=== PATIENT | female | born 1940 | race Caucasian/White ===

== ENCOUNTER 2017-02-18 11:00 | Inpatient (IN) | payer MEDICARE, BC ==
[2017-02-18] MEDS ORDERED: Orphenadrine Citrate IV* 30 MG/ML 2 ML VIAL IV ONE (11:12)
[2017-02-18] MEDS ORDERED: Morphine INJ* 2 MG/ML 1 ML CARPUJECT IV ONE (11:12)
[2017-02-18] MEDS ORDERED: Dexamethasone IV* 4 MG/ML 5 ML VIAL (20 MG) IVPB ONE (11:12)
[2017-02-18] MEDS ORDERED: Morphine INJ* 4 MG/ML 1 ML CARPUJECT ONE (11:30)
--- NOTE | 2017-02-18 12:22 | RAD ---
INDICATION: Low back pain. COMPARISON: Comparison is made with a prior x-ray study of the lumbar spine from October 29, 2003. TECHNIQUE: 3 views of the lumbar spine were obtained including lateral, AP and a coned-down lateral view of the lumbar sacral junction. FINDINGS: There is a mild lumbar scoliosis convex toward the right side. There is grade 2 anterior spondylolisthesis at the L4-L5 level of approximately 1 cm. There is a mild compression fracture of the inferior endplate of the L2 vertebral body which is likely chronic. There is moderate to severe degenerative disc disease at the L1-L2 and L4-L5 levels. IMPRESSION: 1. 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 2. MILD COMPRESSION FRACTURE OF THE INFERIOR ENDPLATE OF THE L2 VERTEBRAL BODY LIKELY CHRONIC. 3. MODERATE TO SEVERE DEGENERATIVE DISC DISEASE.
[2017-02-18 12:52] LABS: Hematocrit 34 % (35-47); Hemoglobin 11.1 g/dl (12.0-16.0); Mean Corpuscular HGB Conc 33 g/dl (31-36); Mean Corpuscular Hemoglobin 29 pg (27-31); Mean Corpuscular Volume 87 fL (80-97); Mean Platelet Volume 9 um3 (7.4-10.4); Red Cell Distribution Width 15 % (10.5-15); White Blood Count 11.2 10^3/ul (3.5-10.8)
[2017-02-18] MEDS ORDERED: Morphine INJ* 4 MG/ML 1 ML CARPUJECT IV ONE (12:59)
[2017-02-18 13:06] LABS: Albumin 3.6 g/dL (3.2-5.2); BUN/Creatinine Ratio 14.3 (8-20); C Reactive Protein 256.22 mg/L (< 5.00); Calcium 9.7 mg/dL (8.6-10.3); EGFR African American 42.2 (>60); EGFR Non-African American 32.8 (>60); Globulin 3.2 g/dL (2-4); Potassium 3.3 mmol/L (3.5-5.0); Total Bilirubin 1.5 mg/dL (0.2-1.0); Total Protein 6.8 g/dL (6.4-8.9)
--- NOTE | 2017-02-18 13:56 | RAD ---
INDICATION: History of chronic back pain. Spinal stenosis. Surgery L4-L5 COMPARISON: Lumbar spine same date; PET scan November 08, 2015 TECHNIQUE: Noncontrast axial source images was performed from the thoracolumbar junction to the sacrum. Coronal and and sagittal reformatted images were generated. FINDINGS: Vertebrae: There is no fracture or acute focal bony lesion. There are osteocytic changes to include the level degenerative spurring and facet arthropathy most prominent at L4-L5 and L5-S1. There are endplate irregularities with deformity of the inferior endplate of L2, unchanged. There is multilevel degenerative disc disease (see below) Alignment: Grade 1-2 anterolisthesis L4 and L5, unchanged. Central Canal: Circumferential bulging of the disc at L3-L4 which combined with ligamentous and facet overgrowth produces moderate to severe central canal stenosis. Similar degenerative changes, in addition to the grade 1-2 anterolisthesis at L4-L5, produces moderate to severe canal stenosis at L4-L5. There are small bilateral laminectomy defects and there is evidence of prior bone graft patient with fusion. There is multilevel foraminal narrowing with elongation of foramina at L4-L5. MR imaging is a more sensitive method to evaluate the canal and foramina. Intervertebral disc spaces: Narrowing with vacuum disc phenomena at L1-L2. Advanced narrowing about L4-L5 with fusion. Soft tissues: The paravertebral soft tissues are normal. Other: None IMPRESSION: Osteoarthritis with multilevel degenerative disc disease. There is moderate to severe canal stenosis at L4-L4 and L4-L5. Postoperative changes with small laminectomy defects/fusion is present at L4-L5.
[2017-02-18 14:15] LABS: Urine Bilirubin Negative (Negative); Urine Glucose Negative (Negative); Urine Nitrite Negative (Negative)
[2017-02-18] MEDS ORDERED: Potassium Chlor TAB* 20 MEQ TAB.ER PO ONE (16:06)
[2017-02-18] MEDS ORDERED: Dextrose 50% Syringe 50 ML* 25 GM/50 ML SYRINGE IV PUSH PRN (18:26)
[2017-02-18] MEDS ORDERED: oxyCODONE TAB* 5 MG TAB PO PRN (18:35)
[2017-02-18] MEDS ORDERED: Insulin LISPRO* 1 UNITS UNIT SUBCUT ONE ×2 (21:15→21:30)
[2017-02-18] MEDS: Insulin GLARGINE(*) 1 UNITS UNIT SUBCUT SCH (21:23)
[2017-02-18] MEDS: Hydrocortisone TAB* 5 MG PO SCH (21:23)
--- NOTE | 2017-02-18 21:25 | RAD ---
INDICATION: Back pain COMPARISON: CT lumbar spine same date; MRI lumbar spine TECHNIQUE: Coronal T2, sagittal T1, T2, inversion recovery, and axial T1 and T2-weighted images were acquired. FINDINGS: Conus medullaris: Normal in size and position . Lumbar alignment: Mild levoscoliosis. Grade 1-2 anterolisthesis of L4 and L5. Lumbar alignment is otherwise normal.. Vertebrae: There are no significant focal marrow signal abnormalities. Disc spaces: T12-L1: Small right paracentral disc herniation leading to partial effacement of CSF anterior to the cord. No canal or foraminal compromise. L1-L2: Degenerative disc disease with disc space narrowing. Moderate broad-based circumferential bulging the disc. Moderate facet overgrowth. No significant canal stenosis. No direct nerve root impingement. L2-L3: Broad-based circumferential bulging of disc in concert with ligamentous and facet overgrowth produces mild to moderate central canal stenosis. Moderate bilateral foraminal narrowing. L3-L4: Moderate broad-based circumferential bulging the disc. Ligamentous and facet overgrowth combine to produce moderate to severe central canal stenosis. There is bilateral foraminal compromise L4-L5: Degenerative disease with disc space narrowing and a grade 1-2 anterolisthesis. There is partial decompression due to small bilateral laminectomy defects but there is central canal stenosis above the surgical defect. There is partial bony fusion posteriorly. L5-S1: Small left paracentral disc herniation leading to partial effacement of CSF anterior to the cord. No significant canal compromise. Facet overgrowth. Mild bilateral foraminal narrowing. Soft tissues: No CT findings of epidural abscess although there is limited sensitivity in detecting an epidural abscess without intravenous contrast was not given due to renal compromise.. Other:None IMPRESSION: Multilevel degenerative disc disease with multilevel foraminal narrowing and canal compromise which is most severe at L3-L4. Grade 1-2 anterolisthesis L4-L5 with postsurgical changes as described. This study does does not demonstrate a localized fluid collection to suggest an epidural abscess although there are inherent limitations given the lack of contrast enhancement.
[2017-02-18] MEDS: Heparin VIAL(*) 5000 UNITS/ML VIAL (FIVE THOUSAND) SUBCUT SCH (22:36)
--- NOTE | 2017-02-19 03:35 | HP ---
CC: Dr. Bragg * HOSPITAL MEDICINE HISTORY AND PHYSICAL: DATE OF ADMISSION: 02/18/17 PRIMARY CARE PHYSICIAN: Dr. Bragg. ATTENDING PHYSICIAN: Soco Knapp MD * (dictation provided by Ling Trevino NP ) CHIEF COMPLAINT: Low back pain. HISTORY OF PRESENT ILLNESS: Ms. Alston is a 77-year-old female with a past medical history of low back pain, hypertension, diabetes, colon cancer, pituitary adenoma, status post hypophysectomy who presents to the hospital with concern for low back pain. Ms. Alston states that she had low back pain for many years, but that her back pain was essentially resolved about 15 years ago when she had a lumbar laminectomy for lumbar stenosis. Since then, she has had some problems with peripheral neuropathy and pain in her left great toe. It seems that she has not had too much of a problem with low back pain until recently, though she is a bit of a difficult historian. It seems difficult for her to characterize, but she has been having increasing pain since , which was Thanksgiving. She describes pain in her low back and pain in her left calf. She states the pain is worse with movement and better with being still either in the seated, lying or standing position. She denies any fevers. She has had no chills. She has had no other complaints. She has had no loss of bowel or bladder. The patient was being helped by her around the house today when she fell and he decided to bring her to the emergency room as he felt he could not care for her any longer while she was in this much pain. In the emergency room, Ms. Alston had a lumbar spine x-ray, which showed grade 2 anterior spondylolisthesis at the L4-L5 level unchanged, mild compression fracture of the inferior endplate of the L2 vertebral body, likely chronic and moderate to severe degenerative disk disease. She also had a lumbar spine CT, which showed osteoarthritis and multilevel degenerative disk disease. There is moderate to severe canal stenosis at L3-L4 and L4-L5, postoperative changes with small laminectomy defects fusion present at L4-L5. PAST MEDICAL/SURGICAL HISTORY: 1. Type 2 diabetes, non-insulin dependent. 2. Hyperlipidemia. 3. Colon cancer. 4. Hypertension. 5. Tonsillectomy. 6. Hypophysectomy for pituitary adenoma, on chronic hydrocortisone therapy. 7. Decompressive laminectomy for lumbar stenosis. 8. History of cataract surgery on the right. 9. CKD. 10. Left bundle-branch block, idiopathic. 11. Hepatitis in 2010. MEDICATIONS: 1. Cosopt 1 drop both eyes b.i.d. 2. Febuxostat 40 mg p.o. daily. 3. Quinapril 40 mg p.o. daily. 4. Repaglinide 1 mg p.o. daily with meals. 5. Sitagliptin 100 mg p.o. daily. 6. Travoprost 1 drop both eyes at bedtime. 7. Atorvastatin 40 mg p.o. daily. 8. Cholecalciferol 2000 units p.o. daily. 9. Hydrocortisone 5 mg p.o. b.i.d. 10. Indapamide 2.5 mg p.o. daily. 11. Spironolactone 12.5 mg p.o. daily. ALLERGIES: No known drug allergies. FAMILY HISTORY: The patient's mother related to renal cell carcinoma and father had bladder cancer. SOCIAL HISTORY: No report of alcohol, tobacco, or drug use. The patient lives with her who is the healthcare proxy. REVIEW OF SYSTEMS: Constitutional: No fevers, no chills, no unintended weight loss. Cardiac: No chest pain or edema. Respiratory: No cough, hemoptysis, or shortness of breath. GI: No nausea, vomiting, diarrhea, or abdominal pain. : No gross hematuria or dysuria. Neuro: Positive for low back pain, but no focal weakness or sensory loss. Eyes: No visual complaints. ENT: No dysphagia. Musculoskeletal: No arthralgias or myalgias. Skin: No rashes or lesions. Psych: No depression or anxiety. PHYSICAL EXAMINATION GENERAL: Ms. Alston is sitting up on the edge of the bed. She is in no acute distress. VITAL SIGNS: Temperature 96.7, pulse rate 89, respiratory rate 18, O2 saturation 99% on room air, blood pressure 132/75. NEURO: She is alert. She is oriented x3. She moves all extremities equally. There is no facial asymmetry or focal weakness. She has good strength in bilateral upper and lower extremities. Deep tendon reflexes are intact though subtle. Her pupils are equal and reactive. Extraocular movements are intact. She is tender in the midline of the back at the base of the spine, likely about the L4-L5 to L5-S1 level. EXTREMITIES: No cyanosis or edema. SKIN: Intact. DIAGNOSTIC STUDIES/LAB DATA: Sodium 133, potassium 3.3, chloride 97, serum bicarbonate 26, BUN 22, creatinine 1.54, glucose 315. Total bilirubin 1.5. CRP 256.22. WBC 11.2, hemoglobin hematocrit 34, and platelet count 228. Urine shows no evidence of infection. Lumbar spine x-ray and CT are read as follows. ASSESSMENT: Ms. Alston is a 77-year-old female with past medical history of lumbar spine pain, essentially had resolved about 15 years ago after a laminectomy, as well as type diabetes, hypertension, and pituitary adenoma, status post resection and a colon cancer who presents today hospital with concern for low back pain. Our plans are for observation in the hospital for the followin. Low back pain: Our efforts will be towards controlling her pain. The patient is very reticent to take new medications, but is willing to try tramadol and perhaps oxycodone, those are available p.r.n. for her to experiment through the evening. In addition, I note that the patient has a dramatically elevated CRP and I am concerned that perhaps she has some other infectious process going on in the spine. She is afebrile and there is no other focus of infection. Plan for MRI brain. The patient cannot have contrast based on her depressed GFR due to her chronic kidney disease. 2. Type 2 diabetes: Plan for blood glucoses q.a.c. with lispro sliding scale insulin. We will be holding all of her diabetic medications from home. 3. Hypertension: Plan to continue spironolactone. Her quinapril is not available via formulary. Her blood pressure has been running about 120s here, if its more elevated, we can add additional agents as necessary if she remains in the hospital. Continue indapamide. 4. History of pituitary adenoma: Continue hydrocortisone. 5. Hypokalemia: The patient has been repleted today in the emergency room, plan to recheck in the a.m. 6. Code status is full code. 7. Disposition to Medical. TIME SPENT: Approximately 60 minutes were spent on the admission of this patient, more than half the time was spent with the patient at the bedside reviewing the events leading up to this hospitalization, performing the physical examination, and reviewing the plan of care. LING TREVINO, FITNESS AND WELLNESS DIRECTOR [id number]/[facility] [place] #: [id number] [facility]S HOSPITALBertrand
[2017-02-19] MEDS: Heparin VIAL(*) 5000 UNITS/ML VIAL (FIVE THOUSAND) SUBCUT SCH ×3 (06:14→22:30)
[2017-02-19 07:00] LABS: Hematocrit 35 % (35-47); Hemoglobin 11.4 g/dl (12.0-16.0); Mean Corpuscular HGB Conc 33 g/dl (31-36); Mean Corpuscular Hemoglobin 29 pg (27-31); Mean Corpuscular Volume 87 fL (80-97); Mean Platelet Volume 10 um3 (7.4-10.4); Red Blood Count 3.97 10^6/ul (4.0-5.4); Red Cell Distribution Width 15 % (10.5-15); White Blood Count 13.5 10^3/ul (3.5-10.8)
[2017-02-19 07:12] LABS: BUN/Creatinine Ratio 18.1 (8-20); Calcium 9.4 mg/dL (8.6-10.3); EGFR African American 40.4 (>60); EGFR Non-African American 31.4 (>60)
--- NOTE | 2017-02-19 07:29 | PN ---
Progress Note - Progress Note Date of Service: 02/18/17 Note: Note is made of negative MRI findings, though I note that she is not able to have contrast for her MRI. Plan to observe closely for fever or other signs of infection. As CRP is a non-specific finding and she has a negative workup thus far, do not plan to not start antibiotics at this point.
[2017-02-19] MEDS: Indapamide TAB* 2.5 MG PO SCH (08:52)
[2017-02-19] MEDS: Atorvastatin* 40 MG TAB PO SCH (08:52)
[2017-02-19] MEDS: Spironolactone TAB* 25 MG PO SCH (08:52)
[2017-02-19] MEDS: Cholecalciferol TAB* 1000 UNITS PO SCH (08:52)
[2017-02-19] MEDS: Hydrocortisone TAB* 5 MG PO SCH ×2 (08:52→21:20)
[2017-02-19] MEDS: Insulin LISPRO* 1 UNITS UNIT SUBCUT SCH ×3 (08:54→17:26)
[2017-02-19 10:00] LABS: C Reactive Protein 264.44 mg/L (< 5.00)
[2017-02-19] MEDS ORDERED: Perflutren Lipid Microsphere* 3 ML VIAL ONE (10:48)
--- NOTE | 2017-02-19 14:24 | RAD ---
INDICATION: Low back pain. Possible discitis. Previous L4-L5 laminectomy. COMPARISON: Noncontrast MRI February 18, 2017. TECHNIQUE: 20.200 mCi of Tc-99m MDP were injected IV. Angiographic and blood pool images of the lumbar sacral spine and pelvis were obtained. Approximately 2 hours after injection, anterior and posterior whole body images and spot images of the lumbar sacral spine and pelvis were obtained. FINDINGS: No compelling angiographic or blood flow activity at the lumbar sacral spine. The delayed series is remarkable for transverse oriented increased signal at the level of the L4-L5 disc space corresponding with advanced degenerative spondylosis with reactive endplate change on MRI. There is symmetric increased activity at the synovial portions of the sacroiliac joints consistent with bilateral sacroiliitis most consistent with osteoarthritis based on correlation with the February 18, 2017 CT. Negative for 3 phase uptake at the level of the sacroiliac joints to favor inflammatory arthropathy. Increased activity at the level of the RIGHT acromioclavicular and patellofemoral joints most consistent with presence of arthropathy. Additional typical arthropathic related activity noted at the LEFT ankle and bilateral feet. The kidneys are normal in size and position and without evidence for obstructive uropathy. IMPRESSION: No three-phase activity to suggest osteomyelitis discitis at the lumbar sacral spine. CPT II: CPT II Codes: 3570F
--- NOTE | 2017-02-19 15:07 | ECHO ---
Patient: LISSETH ROLAND [facility] Rec#: [id number] : 1940 Date: 02/19/2017 Age: 77y Height: 157.48 cm / 62.0 in Weight: 66.68 kg / 147.0 lbs Sex: F BSA: 1.68 Room#: [facility] Admit Date#: 02/18/2017 Type: Inpatient Referring: Dee Razo MD Reading: Rodo Wise MD Factory Lay Out Engineer: Judith Villeda,RDCS,RDMS CC: Balwinder Bragg MD Transthoracic Echocardiogram Indication: MURMUR BP: 133/66 HR: 95 Rhythm: NSR Findings History: HTN, DM, LBBB, CKD, colon cancer Technical Comments: The study quality is fair. Left Ventricle: The left ventricular chamber size is decreased. Mild concentric left ventricular hypertrophy is observed. There is a prominent septal knuckle. Global left ventricular wall motion and contractility are within normal limits. There is normal left ventricular systolic function. The estimated ejection fraction is 60-65%. Abnormal left ventricular diastolic filling is observed, consistent with impaired relaxation. Left Atrium: The left atrial chamber size is normal. Right Ventricle: The right ventricle wall thickness is mildly increased. The right ventricular cavity size is normal. The right ventricular global systolic function is hyperdynamic. Right Atrium: The right atrial cavity size is normal. Aortic Valve: The aortic valve is trileaflet. The aortic valve leaflets are mildly thickened. There is aortic annular calcification. There is no evidence of aortic regurgitation. There is no evidence of aortic stenosis. Mitral Valve: The mitral valve leaflets are mildly thickened. There is no evidence of mitral regurgitation. There is no evidence of mitral stenosis. Tricuspid Valve: The tricuspid valve leaflets are normal. There is no evidence of tricuspid valve regurgitation. Unable to estimate the right ventricular systolic pressure. Pulmonic Valve: The pulmonic valve appears normal. There is no evidence of pulmonic regurgitation. Pericardium: There is no significant pericardial effusion. Aorta: The aortic root appears normal. There is no dilatation of the aortic arch. Pulmonary Artery: The main pulmonary artery appears normal. Venous: The inferior vena cava is not visualized. Contrast: Definity was used to optimize study. A total of 2 ml was used Conclusions Global left ventricular wall motion and contractility are within normal limits. There is normal left ventricular systolic function. The estimated ejection fraction is 60-65%. The right ventricular global systolic function is hyperdynamic. There is no evidence of aortic regurgitation. There is no evidence of aortic stenosis. There is no evidence of mitral regurgitation. There is no evidence of tricuspid valve regurgitation. There is no significant pericardial effusion. Measurements Name Value Normal Range RVIDd (AP) 2D 2.1 cm (0.9 - 2.6) RVDdMajor (2D) 2.1 cm (2.2 - 4.4) RAd ISD 4CH 3.8 cm (3.4 - 4.9) RA (A4C)W 2.2 cm (2.9 - 4.6) IVSd (2D) 1.3 cm (0.6 - 1) LVPWd (2D) 1.3 cm (0.6 - 1) LVIDd (2D) 2.9 cm (3.6 - 5.4) LVIDs (2D) 1.4 cm - LV FS (2D) 52 % (25 - 45) Aortic Annulus 2 cm (1.4 - 2.6) Ao root diameter (2D) 2.5 cm (2.1 - 3.5) Ascending Ao 2.4 cm (2.1 - 3.4) Aortic arch 3 cm (1.8 - 3.4) LA dimension (AP) 2D 2.8 cm (2.3 - 3.8) LAd ISD 4CH 5 cm (2.9 - 5.3) LA ISD 4CH W 3.1 cm (2.5 - 4.5) Name Value Normal Range LA ESV SP 4CH (A/L) 35.34 ml - LA ESV SP 2CH (A/L) 37.09 ml - LA ESV BP (A/L) 36.6 ml - LA ESV BP (A/L) index 22 ml/m2 - LA ESV SP 4CH (MOD) 32.94 ml - LA ESV SP 2CH (MOD) 35.8 ml - Name Value Normal Range MV E-wave Vmax 0.7 m/sec - MV deceleration time 104 msec - MV A-wave Vmax 1.1 m/sec - MV E:A ratio 0.6 ratio - LV septal e' Vmax 0.06 m/sec - LV lateral e' Vmax 0.05 m/sec - LV E:e' septal ratio 12 ratio - LV E:e' lateral ratio 14 ratio - Name Value Normal Range AV Vmax 1.6 m/sec - AV VTI 32 cm - AV peak gradient 10 mmHg - AV mean gradient 6.7 mmHg - LVOT Vmax 1.5 m/sec - LVOT VTI 30 cm - LVOT peak gradient 9 mmHg - LVOT mean gradient 5.4 mmHg - Name Value Normal Range MV Vmax 1.2 m/sec - MV VTI 15 cm - MV peak gradient 6 mmHg - MV mean gradient 2.1 mmHg - MV PHT 33 msec - MVA (PHT) 7 cm2 - Name Value Normal Range RAP 8 mmHg - Name Value Normal Range PV Vmax 1.3 m/sec - PV peak gradient 7 mmHg -
[2017-02-19] MEDS: traMADol TAB* 50 MG PO PRN (15:33)
[2017-02-19] MEDS: Insulin GLARGINE(*) 1 UNITS UNIT SUBCUT SCH (21:19)
[2017-02-20] MEDS: traMADol TAB* 50 MG PO PRN (01:44)
[2017-02-20] MEDS: Heparin VIAL(*) 5000 UNITS/ML VIAL (FIVE THOUSAND) SUBCUT SCH ×3 (05:55→21:56)
[2017-02-20 06:32] LABS: Hematocrit 36 % (35-47); Hemoglobin 11.9 g/dl (12.0-16.0); Mean Corpuscular HGB Conc 33 g/dl (31-36); Mean Corpuscular Hemoglobin 29 pg (27-31); Mean Corpuscular Volume 87 fL (80-97); Mean Platelet Volume 9 um3 (7.4-10.4); Red Blood Count 4.12 10^6/ul (4.0-5.4); Red Cell Distribution Width 16 % (10.5-15); White Blood Count 13.4 10^3/ul (3.5-10.8)
[2017-02-20 06:47] LABS: Albumin 3.6 g/dL (3.2-5.2); BUN/Creatinine Ratio 27.7 (8-20); C Reactive Protein 131.89 mg/L (< 5.00); Calcium 10.1 mg/dL (8.6-10.3); EGFR African American 38.7 (>60); EGFR Non-African American 30.1 (>60); Globulin 3.5 g/dL (2-4); Potassium 3.5 mmol/L (3.5-5.0); Total Bilirubin 0.7 mg/dL (0.2-1.0); Total Protein 7.1 g/dL (6.4-8.9)
[2017-02-20 07:17] LABS: Erythrocyte Sed Rate 111 mm/Hr (0-40)
[2017-02-20] MEDS: Insulin LISPRO* 1 UNITS UNIT SUBCUT SCH ×4 (07:56→16:57)
--- NOTE | 2017-02-20 09:03 | PN ---
Subjective - Subjective Reason for Note: Progress Note History: I obtained the history of her current medical problems from the patient, Dr. Dee Razo and from the electronic medical record. She had a fall after getting out of bed Saturday morning (today Sat). Her Krishna Alston couldn' t get her up and hence the ambulance was called. She developed low back pain and pain in the left lower leg at around that time. This has continued at 3/10 lying in bed and 8 - 9/10 when she stands. She states that the left lower leg pain in her calf started either at the same time, or before the pain in her lower back. She doesn't remember if the fall happened before the back pain or whether she already had the back pain. She has recently had worsening glycemic control and I recently started her on sitaglipitin. She has continued to have hyperglycemia in the hospital and has started insulin therapy. I have reviewed her extensive investigations in the hospital. The imaging has not demonstrated osteomyelitis of the spine or disciitis. However, her ESR and CRP have been very raised. She denies any fevers/sweats or other symptoms of infection. 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) E11.22, N18.4 Diabetic nephropathy associated with type 2 diabetes mellitus (Chronic) E11.21 Diabetic neuropathy associated with type 2 diabetes mellitus (Chronic) E11.40 Essential hypertension (Chronic) I10 Glaucoma (Chronic) H40.9 History of gout (Chronic) Z87.39 History of pituitary adenoma (Chronic) Z86.39 Hyperlipidemia (Chronic) E78.5 Hypothyroidism (Chronic) E03.9 Impairment of balance (Chronic) R26.89 Left bundle branch block (Chronic) I44.7 Myopia of both eyes (Chronic) H52.13 Osteoporosis (Chronic) M81.0 Spinal stenosis (Chronic) M48.00 Current Medications: Current Medications Atorvastatin Calcium (Lipitor*) 40 mg PO DAILY [facility] Last Admin: 02/19/17 08:52 Dose: 40 mg Cholecalciferol (Vitamin D Tab*) 2,000 units PO DAILY [facility] Last Admin: 02/19/17 08:52 Dose: 2,000 units Dextrose (D50w Syringe 50 Ml*) 12.5 gm IV PUSH .FOR FS < 60 - SS PRN PRN Reason: FS < 60 Heparin Sodium (Porcine) (Heparin Vial(*)) 5,000 units SUBCUT Q8HR [facility] Last Admin: 02/20/17 05:55 Dose: 5,000 units Hydrocortisone (Cortef Tab*) 5 mg PO BID [facility] Last Admin: 02/19/17 21:20 Dose: 5 mg Indapamide (Lozol Tab*) 2.5 mg PO DAILY [facility] Last Admin: 02/19/17 08:52 Dose: 2.5 mg Insulin Glargine (Lantus(*)) 5 units SUBCUT Q24H [facility] Last Admin: 02/19/17 21:19 Dose: 5 units Insulin Human Lispro (Humalog*) 0 units SUBCUT AC [facility] PRN Reason: Protocol Last Admin: 02/20/17 07:56 Dose: 4 units Oxycodone HCl (Roxycodone Tab*) 5 mg PO Q4H PRN PRN Reason: PAIN Last Admin: 02/19/17 21:20 Dose: 5 mg Spironolactone (Aldactone Tab*) 12.5 mg PO DAILY [facility] Last Admin: 02/19/17 08:52 Dose: 12.5 mg Tramadol HCl (Ultram*) 50 mg PO Q8H PRN PRN Reason: PAIN Last Admin: 02/20/17 01:44 Dose: 50 mg - Review of Systems Constitutional Symptoms: Yes: Fatigue, Unexplained Falls, No: Fever, Night Sweats Dermatology: Rash: No Eyes: Positive: Other - myopia - has forgotten her glases Thyroid: Positive: Primary Hypothyroidism Pulmonary: Negative: Cough, Sputum, Respiratory Distress, Shortness of Breath Cardiology: Positive: Swelling of Ankles - longstanding Negative: Chest Pain, Shortness of Breath, Palpitations Gastroenterology: Positive: Anorexia, Change in Bowel Habits - She has alternating regular stool and loose stool - this is not new Negative: Abdominal Pain, Nausea, Vomiting Genital - Urinary: Negative: Dysuria Musculoskeletal: Positive: Low Back Pain, Other - no early childhood services coordinator stiffness. No muscle pain in her shoulders Negative: Joint Pain, Joint Stiffness, Arthritis Neurology: Negative: Headache, Migraines, Change in Vision Psychiatry: Positive: Normal Home Medications: Home Medications Medication Instructions Recorded Confirmed Type Atorvastatin* [Lipitor*] 40 mg PO DAILY 02/18/17 02/18/17 History Cholecalciferol TAB* [Vitamin D 2,000 units PO DAILY 02/18/17 02/18/17 History TAB*] Dorzolamide/Timolol OPTH (NF) 1 drop BOTH EYES BID 02/18/17 02/18/17 History [Cosopt (NF)] Febuxostat(NF) [Uloric(NF)] 40 mg PO DAILY 02/18/17 02/18/17 History Hydrocortisone TAB* [Cortef*] 5 mg PO BID 02/18/17 02/18/17 History Indapamide TAB* [Lozol TAB*] 2.5 mg PO DAILY 02/18/17 02/18/17 History Quinapril HCl 40 mg PO DAILY 02/18/17 02/18/17 History Repaglinide TAB* [Prandin TAB*] 1 mg PO DAILY WITH MEAL 02/18/17 02/18/17 History SitaGLIPtin (NF) [Januvia (NF)] 100 mg PO DAILY 02/18/17 02/18/17 History Spironolactone TAB* [Aldactone 12.5 mg PO DAILY 02/18/17 02/18/17 History TAB*] Travoprost Z 0.004% OPHTH (NF) 1 drop BOTH EYES BEDTIME 02/18/17 02/18/17 History [Travatan Z 0.004% OPTH (NF)] Allergies: Allergies Allergy/AdvReac Type Severity Reaction Status Date / Time No Known Allergies Allergy Verified 02/18/17 11:17 Objective - Vital Signs Vital Signs: Vital Signs 02/19/17 02/19/17 02/19/17 15:33 15:35 18:13 Temperature 97.8 F Pulse Rate 94 Respiratory 16 18 18 Rate Blood Pressure 112/43 (mmHg) O2 Sat by Pulse 98 Oximetry 02/19/17 02/19/17 02/19/17 20:00 20:06 21:20 Temperature 97.5 F Pulse Rate 100 Respiratory 16 20 16 Rate Blood Pressure 136/74 (mmHg) O2 Sat by Pulse 97 Oximetry 02/20/17 02/20/17 02/20/17 00:07 00:11 01:44 Temperature 98.2 F Pulse Rate 93 Respiratory 16 16 16 Rate Blood Pressure 103/89 (mmHg) O2 Sat by Pulse 98 Oximetry 02/20/17 02/20/17 04:19 04:59 Temperature 98.2 F Pulse Rate 86 Respiratory 16 16 Rate Blood Pressure 155/67 (mmHg) O2 Sat by Pulse 97 Oximetry - Intake and Output Intake and Output: Intake & Output 02/17/17 02/18/17 02/19/17 02/20/17 11:59 11:59 11:59 11:59 Intake Total 660 Balance 660 Intake: Oral 660 Other: Estimated Void Medium # Bowel Movements 0 # Voids 2 ADLs: Meal Record Start: 02/18/17 15: 32 Freq: DAILY@0900,1400,1800 Status: Active Protocol: Document 02/18/17 18:00 [id number] (Rec: 02/18/17 21:37 [id number] MED-C14) Document 02/19/17 09:00 [id number] (Rec: 02/19/17 09:53 [id number] MED-C09) Document 02/19/17 14:00 [id number] (Rec: 02/19/17 14:26 [id number] MED-C09) Document 02/19/17 18:00 [id number] (Rec: 02/19/17 18:15 [id number] MED-C15) Intake and Output Start: 02/18/17 15: 32 Freq: DAILY@0600,1400,2200 Status: Active Protocol: Document 02/18/17 22:00 [id number] (Rec: 02/18/17 22:27 [id number] MED-C14) Document 02/19/17 05:24 [id number] (Rec: 02/19/17 05:26 [id number] MEDL-C02) Document 02/19/17 14:00 [id number] (Rec: 02/19/17 14:26 [id number] MED-C09) Document 02/19/17 22:00 [id number] (Rec: 02/19/17 22:25 [id number] MED-C11) Document 02/20/17 05:56 [id number] (Rec: 02/20/17 05:57 [id number] MED-C26) - Physical Exam General Physical Exam Comment: She is in no distress and is warm and well perfused. She has pain when she tries to sit up or when I press on her lumbar/ sacral spine. Her foot exam shows no infections/callouses/ulcers General: No Cyanosis, Yes Anemia, No Jaundice, No Lymphadenopathy, No Clubbing Eye Exam: bilateral: EOMI Skin: Normal: Rash, Lesions Head: Yes Normocephalic Endocrine: Yes Central Obesity, No Hirsuitism, No Virilism, No Acromegaly, No Vitiligo, No Flushing, No Acanthosis nigricans, No Violaceious striae, No Colin Syndrome, No Buccal pigmenatation, No Grande Crease Pigmentation Lungs and Chest: Yes: Chest Expansion Full, Chest Expansion Symetrica, Percussion Note Resonant, Vessicular Breath Sounds. No: Crackles, Wheezes Heart Rate and Rhythm: Regular JVP: Not Elevated Additional Cardiovascular: Yes: Normal Heart Sounds, Pedal Edema - 1+. No: Heart Murmur Abdominal Exam: Yes: Soft, Bowel Sounds Present. No: Distention, Abdominal Mass , Abdominal Tenderness - Extremities Cranial Nerves II-XII Intact: Yes Limbs: Normal Power - Neuro Orientation: A/O x3 Psychiatric: Normal Speech: Normal Results - Results Lab Results: Laboratory Results - last 24 hr 02/19/17 02/20/17 02/20/17 17:04 06:21 06:21 WBC 13.4 H RBC 4.12 Hgb 11.9 L Hct 36 MCV 87 MCH 29 MCHC 33 RDW 16 H Plt Count 306 MPV 9 ESR 111 H Sodium 134 Potassium 3.5 Chloride 98 L Carbon Dioxide 26 Anion Gap 10 BUN 46 H Creatinine 1.66 H Est GFR ( Amer) 38.7 Est GFR (Non-Af Amer) 30.1 BUN/Creatinine Ratio 27.7 H Glucose 218 H POC Glucose (mg/dL) 265 H Calcium 10.1 Total Bilirubin 0.70 AST 20 ALT 25 Alkaline Phosphatase 69 C-Reactive Protein 131.89 H Total Protein 7.1 Albumin 3.6 Globulin 3.5 Albumin/Globulin Ratio 1.0 02/20/17 07:40 WBC RBC Hgb Hct MCV MCH MCHC RDW Plt Count MPV ESR Sodium Potassium Chloride Carbon Dioxide Anion Gap BUN Creatinine Est GFR ( Amer) Est GFR (Non-Af Amer) BUN/Creatinine Ratio Glucose POC Glucose (mg/dL) 209 H Calcium Total Bilirubin AST ALT Alkaline Phosphatase C-Reactive Protein Total Protein Albumin Globulin Albumin/Globulin Ratio Radiology Results: Patient Name: LISSETH ALSTON Medical Record#: [id number] Ordering Physician: Karlo Barcenas MD Acct.#: [id number] : 1940 Age: 77 Sex: F Location: EMERGENCY DEPARTMENT Exam Date: 02/18/17 1111 ADM Status: REG ER Order Information: SP LUMBAR AP/LAT 2-3 VIEWS Accession Number: [id number] CPT: 39885 INDICATION: Low back pain. COMPARISON: Comparison is made with a prior x-ray study of the lumbar spine from October 29, 2003. TECHNIQUE: 3 views of the lumbar spine were obtained including lateral, AP and a coned-down lateral view of the lumbar sacral junction. FINDINGS: There is a mild lumbar scoliosis convex toward the right side. There is grade 2 anterior spondylolisthesis at the L4-L5 level of approximately 1 cm. There is a mild compression fracture of the inferior endplate of the L2 vertebral body which is likely chronic. There is moderate to severe degenerative disc disease at the L1-L2 and L4-L5 levels. IMPRESSION: 1. 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 2. MILD COMPRESSION FRACTURE OF THE INFERIOR ENDPLATE OF THE L2 VERTEBRAL BODY LIKELY CHRONIC. 3. MODERATE TO SEVERE DEGENERATIVE DISC DISEASE. <Electronically signed by Crow Pritchett MD in [place]> 02/18/171218 Dictated By: Crow Pritchett MD Dictated Date/Time: 02/18/171218 Transcribed Date/Time: 02/18/171215 Copy to: CC:Balwinder Bragg MD; Karlo Barcenas MD Imaging - [facility] Imaging - [facility] Imaging [facility] [address] [address] ph ([phone]) ph ([phone]) ph ([phone]) Patient Name: LISSETH ALSTON Medical Record#: [id number] Ordering Physician: Karlo Barcenas MD Acct.#: [id number] : 1940 Age: 77 Sex: F Location: EMERGENCY DEPARTMENT Exam Date: 02/18/17 1258 ADM Status: REG ER Order Information: CT SPINE LUMBAR W/O Accession Number: [id number] CPT: 20178 INDICATION: History of chronic back pain. Spinal stenosis. Surgery L4-L5 COMPARISON: Lumbar spine same date; PET scan November 08, 2015 TECHNIQUE: Noncontrast axial source images was performed from the thoracolumbar junction to the sacrum. Coronal and and sagittal reformatted images were generated. FINDINGS: Vertebrae: There is no fracture or acute focal bony lesion. There are osteocytic changes to include the level degenerative spurring and facet arthropathy most prominent at L4-L5 and L5-S1. There are endplate irregularities with deformity of the inferior endplate of L2, unchanged. There is multilevel degenerative disc disease (see below) Alignment: Grade 1-2 anterolisthesis L4 and L5, unchanged. Central Canal: Circumferential bulging of the disc at L3-L4 which combined with ligamentous and facet overgrowth produces moderate to severe central canal stenosis. Similar degenerative changes, in addition to the grade 1-2 anterolisthesis at L4 -L5, produces moderate to severe canal stenosis at L4-L5. There are small bilateral laminectomy defects and there is evidence of prior bone graft patient with fusion. There is multilevel foraminal narrowing with elongation of foramina at L4-L5. MR imaging is a more sensitive method to evaluate the canal and foramina. Intervertebral disc spaces: Narrowing with vacuum disc phenomena at L1-L2. Advanced narrowing about L4-L5 with fusion. Soft tissues: The paravertebral soft tissues are normal. Other: None IMPRESSION: Osteoarthritis with multilevel degenerative disc disease. There is moderate to severe canal stenosis at L4-L4 and L4-L5. Postoperative changes with small laminectomy defects/fusion is present at L4-L5. <Electronically signed by Yair Kee MD in [place]> 02/18/17 1353 Dictated By: Yair Kee MD Dictated Date/Time: 02/18/17 1353 Transcribed Date/Time: 02/18/17 1339 Copy to: CC:Balwinder Bragg MD; Karlo Barcenas MD Imaging - [facility] Imaging - [facility] Imaging - [facility] [address] 1 of 2 Patient Name: LISSETH ALSTON Medical Record#: [id number] Ordering Physician: Ling Trevino FIELD AIDE Acct.#: [id number] : 1940 Age: 77 Sex: F Location: [address] [place] [address] MEDICAL Exam Date: 02/18/17 183 ADM Status: ADM Alberto Order Information: MRI LUMBAR SPINE W/O Accession Number: [id number] CPT: 29303 INDICATION: Back pain COMPARISON: CT lumbar spine same date; MRI lumbar spine TECHNIQUE: Coronal T2, sagittal T1, T2, inversion recovery, and axial T1 and T2- weighted images were acquired. FINDINGS: Conus medullaris: Normal in size and position . Lumbar alignment: Mild levoscoliosis. Grade 1-2 anterolisthesis of L4 and L5. Lumbar alignment is otherwise normal.. Vertebrae: There are no significant focal marrow signal abnormalities. Disc spaces: T12-L1: Small right paracentral disc herniation leading to partial effacement of CSF anterior to the cord. No canal or foraminal compromise. L1-L2: Degenerative disc disease with disc space narrowing. Moderate broad-based circumferential bulging the disc. Moderate facet overgrowth. No significant canal stenosis. No direct nerve root impingement. L2-L3: Broad-based circumferential bulging of disc in concert with ligamentous and facet overgrowth produces mild to moderate central canal stenosis. Moderate bilateral foraminal narrowing. L3-L4: Moderate broad-based circumferential bulging the disc. Ligamentous and facet overgrowth combine to produce moderate to severe central canal stenosis. There is bilateral foraminal compromise L4-L5: Degenerative disease with disc space narrowing and a grade 1-2 anterolisthesis. There is partial decompression due to small bilateral laminectomy defects but there is central canal stenosis above the surgical defect. There is partial bony fusion posteriorly. L5-S1: Small left paracentral disc herniation leading to partial effacement of CSF anterior to the cord. No significant canal compromise. Facet overgrowth. Mild bilateral foraminal narrowing. Soft tissues: No CT findings of epidural abscess although there is limited sensitivity in detecting an epidural abscess without intravenous contrast was not given due to renal compromise.. Other:None IMPRESSION: Multilevel degenerative disc disease with multilevel foraminal narrowing and canal compromise which is most severe at L3-L4. Grade 1-2 anterolisthesis L4-L5 with postsurgical changes as described. This study does does not demonstrate a localized fluid collection to suggest an epidural abscess although there are inherent limitations given the lack of contrast enhancement. 1 of 2 Patient Name: LISSETH ALSTON Medical Record#: [id number] Ordering Physician: Dee Razo MD Acct.#: [id number] : 1940 Age: 77 Sex: F Location: [address] [place] [address] Exam Date: 02/19/17 1029 ADM Status: ADM Alberto Order Information: NM BONE SCAN IMAGING 3 PHASE Accession Number: [id number] CPT: 12722 INDICATION: Low back pain. Possible discitis. Previous L4-L5 laminectomy. COMPARISON: Noncontrast MRI February 18, 2017. TECHNIQUE: 20.200 mCi of Tc-99m MDP were injected IV. Angiographic and blood pool images of the lumbar sacral spine and pelvis were obtained. Approximately 2 hours after injection, anterior and posterior whole body images and spot images of the lumbar sacral spine and pelvis were obtained. FINDINGS: No compelling angiographic or blood flow activity at the lumbar sacral spine. The delayed series is remarkable for transverse oriented increased signal at the level of the L4-L5 disc space corresponding with advanced degenerative spondylosis with reactive endplate change on MRI. There is symmetric increased activity at the synovial portions of the sacroiliac joints consistent with bilateral sacroiliitis most consistent with osteoarthritis based on correlation with the February 18, 2017 CT. Negative for 3 phase uptake at the level of the sacroiliac joints to favor inflammatory arthropathy. Increased activity at the level of the RIGHT acromioclavicular and patellofemoral joints most consistent with presence of arthropathy. Additional typical arthropathic related activity noted at the LEFT ankle and bilateral feet. The kidneys are normal in size and position and without evidence for obstructive uropathy. IMPRESSION: No three-phase activity to suggest osteomyelitis discitis at the lumbar sacral spine. CPT II: CPT II Codes: 3570F <Electronically signed by Karlo Ruby MD in [place]> 02/19/17 1420 Dictated By: Karlo Ruby MD Dictated Date/Time: 02/19/17 1420 Transcribed Date/Time: 02/19/17 1409 Copy to: CC:Balwinder Bragg MD; Soco Tyler MD; Dee Razo MD Imaging - [facility] [address] [facility] [address] [place] [address] ph ([phone]) ph ([phone]) ph ([phone]) 1 of 1 Other Results/Reports: Echocardiogram - transthoracic Conclusions Global left ventricular wall motion and contractility are within normal limits. There is normal left ventricular systolic function. The estimated ejection fraction is 60-65%. The right ventricular global systolic function is hyperdynamic. There is no evidence of aortic regurgitation. There is no evidence of aortic stenosis. There is no evidence of mitral regurgitation. There is no evidence of tricuspid valve regurgitation. There is no significant pericardial effusion. 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 She had some pain her feet for some time. The fall occurred when her was trying to help her to the bathroom. Krishna Alston stated she mentioned her back before the fall, but wasn' t particularly aware of this as a problem as she wasn't stressing this to him. He has noticed increasing instability. She has had worsening swelling of her feet. He worried about gout/peripheral neuropathy. At present the imaging appears to have ruled out osteomyelitis/disciitis. Elevated erythrocyte sedimentation rate (Acute) She has had an increase in her CRP: Laboratory Tests 02/18/17 02/19/17 02/20/17 12:36 06:20 06:21 C-Reactive Protein 256.22 H 264.44 H 131.89 H Her sedimentation rate is also elevated at 111. The cause of the elevation of the CRP and sed rate is not clear -but clearly the CRP is coming down rapidly. I suppose it is possible she has an attack of gout - but there is no clear erythema or focal swelling her feet. I will recheck her uric acid. I will continue to watch this. She has no evidence of vegetations on her heart valve. Dr. Craft was asked to consult by Dr. Dee Razo Type 2 diabetes mellitus, uncontrolled (Acute) Her glycemic control has worsened. I will start her on insulin and obtain education from Elen Marshall NP Anemia (Chronic) This is likely secondary to her renal failure Diabetic nephropathy associated with type 2 diabetes mellitus (Chronic/CKD stage 4 due to type 2 diabetes mellitus (Chronic) this is not exacerbated Diabetic neuropathy associated with type 2 diabetes mellitus (Chronic) This remains a contributing factor to her pain and also to her poor balance Essential hypertension (Chronic) this is controlled Glaucoma (Chronic) secondary diagnosis History of gout (Chronic) see above History of pituitary adenoma (Chronic) not an acute issue Hyperlipidemia (Chronic) secondary diagnosis Hypothyroidism (Chronic) secondary diagnosis Impairment of balance (Chronic) This is a major issue and I will have PT/OT evaluate - she may require rehab before home (either acute or subacute - PMRU or SNF) Left bundle branch block (Chronic) secondary diagnosis Myopia of both eyes (Chronic) secondary diagnosis. Osteoporosis (Chronic) ongoing - no new fractures Spinal stenosis (Chronic) This is severe. I spoke to the patient and her Krishna Alston on the phone. She has improvement of her back pain. Her CRP is coming down. Dr. Craft will look for occult infection. I will obtain an OT/PT consultation. I have contacted Elen Marshall NP for diabetes education/insulin therapy
[2017-02-20] MEDS ORDERED: Dextrose 50% Syringe 50 ML* 25 GM/50 ML SYRINGE IV PUSH PRN (09:34)
[2017-02-20] MEDS: Atorvastatin* 40 MG TAB PO SCH (10:18)
[2017-02-20] MEDS: Hydrocortisone TAB* 5 MG PO SCH ×2 (10:18→21:56)
[2017-02-20] MEDS: Cholecalciferol TAB* 1000 UNITS PO SCH (10:18)
[2017-02-20] MEDS: Indapamide TAB* 2.5 MG PO SCH (10:21)
[2017-02-20] MEDS: Spironolactone TAB* 25 MG PO SCH (10:22)
[2017-02-20] MEDS: Insulin GLARGINE(*) 1 UNITS UNIT SUBCUT SCH (10:24)
[2017-02-20] MEDS ORDERED: Insulin LISPRO* 1 UNITS UNIT SUBCUT SCH (11:30)
--- NOTE | 2017-02-20 11:59 | CONS ---
CONSULTATION REPORT: DATE OF CONSULT: 02/20/17 REQUESTING PHYSICIAN: Dr. Dee Razo. CONSULTING SERVICE: Infectious Disease. REASON FOR CONSULTATION: Back pain, CRP elevation. IMPRESSION: 1. Acute low back pain, which is at the sacral level and a band across her back. There is no spine tenderness to palpation. There is right SI joint tenderness to palpation. A bone scan shows uptake in both SI joints consistent with osteoarthritis. She had a CRP obtained on admission which was 260 on the , today it is down to 130. She has no other constitutional symptoms and I think an infectious etiology for her back pain is unlikely given negative MRI of the spine, intact neurologic exam, and improving C-reactive protein without antibiotics. 2. Elevated inflammatory markers. CRP was 260, it is down to 130. Her sedimentation rate is 111. Again without constitutional symptoms, I think a systemic infection unlikely. She has a mild anemia, but it is improving and now worsening of her chronic kidney disease to suggest a myeloma like picture. 3. Diabetes with peripheral neuropathy. 4. History of colon cancer, status post partial colectomy. 5. History of decompressive laminectomy from lumbar stenosis. 6. Chronic kidney disease. RECOMMENDATIONS: Agree with holding antibiotics and following her inflammatory markers. If there was some inciting event that cause them to be elevated, the C - reactive protein usually comes down more quickly than sedimentation rate if the inciting event has been resolved. If the pain is worsening and the C- reactive protein is climbing again, another consideration would be an MRI of the pelvis to evaluate for septic SI joint. At this point, I do think it is less likely. HISTORY OF PRESENT ILLNESS: This is a 77-year-old woman with diabetes and a history of low back pain, though none recently and now with 2 to 3 days of back pain and difficulty walking because of pain. The symptoms came on rather suddenly on the . Because of the pain, she felt she had to slide down from where she was standing in the bathroom and had a hard time getting up because the pain was severe. Her had her brought to the emergency room on the . Her white count was 11. Her C-reactive protein is 256 on the , the next morning was 264, today it is 131. She has had no antibiotics while she has been here. She has been afebrile. She has had no fevers, chills, sweats, or anorexia. Her back pain has come and gone and back again, though this morning it is much improved and she has been out of bed, walking a little bit, did not have pain with ambulation which she had previously in the last 2 days. Bending over and reaching to the ground is painful for her, mostly in a band- like distribution in the upper buttocks. She has baseline numbness and neuropathy in both feet. She has no worsening of those symptoms. She has no weakness in her legs that she has noticed. She has had no trouble with bowel or bladder function. She has had no recent upper respiratory symptoms, cough, dysuria, or diarrhea other than a baseline diarrhea. PAST MEDICAL HISTORY: 1. Diabetes with peripheral neuropathy. 2. Hyperlipidemia. 3. Colon cancer, status post partial colectomy. 4. Pituitary adenoma treated with radiation therapy. 5. Hypertension. 6. Tonsillectomy. 7. Status post decompressive laminectomy for lumbar stenosis. 8. Status post right cataract surgery. 9. Chronic kidney disease. 10. Left bundle branch block. 11. Hepatitis in 2010. MEDICATIONS: 1. Lipitor. 2. Cholecalciferol. 3. Heparin subcutaneous injection. 4. Hydrocortisone tablet. 5. Indapamide. 6. Insulin glargine. 7. Insulin lispro. 8. Spironolactone. 9. Tramadol. ALLERGIES: No known drug allergies. FAMILY HISTORY: No recurrent infections or tuberculosis. SOCIAL HISTORY: She lives in [place] with her . She is a retired teacher. She has had no travel or sick contacts. She has no pets. REVIEW OF SYSTEMS: A 14-point review of systems was negative except as noted above. PHYSICAL EXAM: Vital Signs: Temperature 36.8, heart rate 86, respiratory rate 16, blood pressure 155/67, and O2 sat 97% on room air. General: She is awake, not in distress. Neurologic: She is oriented x3, follows all commands. Strength: 5/5 is the quadriceps, tibialis anterior, and gastrocnemius bilaterally. Sensation is decreased in both feet bilaterally. Gait is antalgic. Neck: Supple without nuchal rigidity. Lymph Nodes: There is no cervical, supraclavicular, inguinal, axillary, or epitrochlear lymphadenopathy. Heart is regular, rate, and rhythm without murmurs, rubs, or gallops. Lungs are clear to auscultation bilaterally. Abdomen is soft, nontender, and nondistended. There are bowel sounds present. Skin: There is no rash or splinter hemorrhages. Musculoskeletal: There is no spine tenderness to palpation. There is right SI joint tenderness to palpation. There is no left SI joint tenderness to palpation. There is no paraspinal muscle tenderness to palpation. There is no joint tenderness to palpation. DIAGNOSTIC STUDIES/LAB DATA: Creatinine 1.6, white blood cell count 13, hemoglobin 11, platelets 306. Please see impressions and recommendations outlined above, which I have discussed with Dr. Bragg. Thank you for asking me to see Dana Gamaliel in consultation. [id number]/[facility] #: [id number] MTDBertrand
[2017-02-21] MEDS: traMADol TAB* 50 MG PO PRN (04:05)
[2017-02-21] MEDS: Heparin VIAL(*) 5000 UNITS/ML VIAL (FIVE THOUSAND) SUBCUT SCH (06:08)
--- NOTE | 2017-02-21 07:56 | PN ---
Subjective - Subjective Reason for Note: Discharge Note History: She has less pain in her back and is walking independently with a walker. I reviewed the OT/PT consultations - she needs no rehabilitation. Otherwise, she is feeling well this morning and has no fevers/sweats. 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) E11.22, N18.4 Diabetic nephropathy associated with type 2 diabetes mellitus (Chronic) E11.21 Diabetic neuropathy associated with type 2 diabetes mellitus (Chronic) E11.40 Essential hypertension (Chronic) I10 Glaucoma (Chronic) H40.9 History of gout (Chronic) Z87.39 History of pituitary adenoma (Chronic) Z86.39 Hyperlipidemia (Chronic) E78.5 Hypothyroidism (Chronic) E03.9 Impairment of balance (Chronic) R26.89 Left bundle branch block (Chronic) I44.7 Myopia of both eyes (Chronic) H52.13 Osteoporosis (Chronic) M81.0 Spinal stenosis (Chronic) M48.00 Current Medications: Current Medications Atorvastatin Calcium (Lipitor*) 40 mg PO DAILY [facility] Last Admin: 02/20/17 10:18 Dose: 40 mg Cholecalciferol (Vitamin D Tab*) 2,000 units PO DAILY [facility] Last Admin: 02/20/17 10:18 Dose: 2,000 units Dextrose (D50w Syringe 50 Ml*) 12.5 gm IV PUSH .FOR FS < 60 - SS PRN PRN Reason: FS < 60 Febuxostat (Uloric(Nf)) 40 mg PO DAILY [facility] Heparin Sodium (Porcine) (Heparin Vial(*)) 5,000 units SUBCUT Q8HR [facility] Last Admin: 02/21/17 06:08 Dose: 5,000 units Hydrocortisone (Cortef Tab*) 5 mg PO BID [facility] Last Admin: 02/20/17 21:56 Dose: 5 mg Indapamide (Lozol Tab*) 2.5 mg PO DAILY [facility] Last Admin: 02/20/17 10:21 Dose: 2.5 mg Insulin Glargine (Lantus(*)) 15 units SUBCUT Q24H [facility] Last Admin: 02/20/17 10:24 Dose: 15 unit Insulin Human Lispro (Humalog*) 0 units SUBCUT AC [facility] PRN Reason: Protocol Last Admin: 02/20/17 16:56 Dose: 4 units Insulin Human Lispro (Humalog*) 4 units SUBCUT AC [facility] Last Admin: 02/20/17 16:57 Dose: 4 units Oxycodone HCl (Roxycodone Tab*) 5 mg PO Q4H PRN PRN Reason: PAIN Last Admin: 02/19/17 21:20 Dose: 5 mg Spironolactone (Aldactone Tab*) 12.5 mg PO DAILY [facility] Last Admin: 02/20/17 10:22 Dose: 12.5 mg Tramadol HCl (Ultram*) 50 mg PO Q8H PRN PRN Reason: PAIN Last Admin: 02/21/17 04:05 Dose: 50 mg Home Medications: Home Medications Medication Instructions Recorded Confirmed Type Atorvastatin* [Lipitor*] 40 mg PO DAILY 02/18/17 02/18/17 History Cholecalciferol TAB* [Vitamin D 2,000 units PO DAILY 02/18/17 02/18/17 History TAB*] Dorzolamide/Timolol OPTH (NF) 1 drop BOTH EYES BID 02/18/17 02/18/17 History [Cosopt (NF)] Febuxostat(NF) [Uloric(NF)] 40 mg PO DAILY 02/18/17 02/18/17 History Hydrocortisone TAB* [Cortef*] 5 mg PO BID 02/18/17 02/18/17 History Indapamide TAB* [Lozol TAB*] 2.5 mg PO DAILY 02/18/17 02/18/17 History Quinapril HCl 40 mg PO DAILY 02/18/17 02/18/17 History Repaglinide TAB* [Prandin TAB*] 1 mg PO DAILY WITH MEAL 02/18/17 02/18/17 History SitaGLIPtin (NF) [Januvia (NF)] 100 mg PO DAILY 02/18/17 02/18/17 History Spironolactone TAB* [Aldactone 12.5 mg PO DAILY 02/18/17 02/18/17 History TAB*] Travoprost Z 0.004% OPHTH (NF) 1 drop BOTH EYES BEDTIME 02/18/17 02/18/17 History [Travatan Z 0.004% OPTH (NF)] Allergies: Allergies Allergy/AdvReac Type Severity Reaction Status Date / Time No Known Allergies Allergy Verified 02/18/17 11:17 Objective - Vital Signs Vital Signs: Vital Signs 02/20/17 02/20/17 02/20/17 08:00 10:00 15:17 Temperature 97.9 F 97.7 F Pulse Rate 95 93 Respiratory 18 16 Rate Blood Pressure 148/58 115/47 (mmHg) O2 Sat by Pulse 96 99 Oximetry 02/20/17 02/20/17 02/20/17 19:27 20:00 23:58 Temperature 98.0 F 98.4 F Pulse Rate 96 96 Respiratory 20 20 16 Rate Blood Pressure 119/60 135/54 (mmHg) O2 Sat by Pulse 95 99 Oximetry 02/21/17 02/21/17 03:30 04:05 Temperature 98.4 F Pulse Rate 99 Respiratory 16 16 Rate Blood Pressure 160/75 (mmHg) O2 Sat by Pulse 95 Oximetry - Intake and Output Intake and Output: Intake & Output 02/18/17 02/19/17 02/20/17 02/21/17 11:59 11:59 11:59 11:59 Intake Total 890 1040 Balance 890 1040 Intake: Oral 890 1040 Other: Estimated Void Medium Medium # Bowel Movements 0 0 # Voids 2 1 ADLs: Meal Record Start: 02/18/17 15: 32 Freq: DAILY@0900,1400,1800 Status: Active Protocol: Document 02/18/17 18:00 [id number] (Rec: 02/18/17 21:37 [id number] MED-C14) Document 02/19/17 09:00 [id number] (Rec: 02/19/17 09:53 [id number] MED-C09) Document 02/19/17 14:00 [id number] (Rec: 02/19/17 14:26 [id number] MED-C09) Document 02/19/17 18:00 [id number] (Rec: 02/19/17 18:15 [id number] MED-C15) Document 02/20/17 09:00 [id number] (Rec: 02/20/17 10:25 [id number] MED-C11) Document 02/20/17 14:00 [id number] (Rec: 02/20/17 14:40 [id number] MED-C11) Document 02/20/17 18:00 [id number] (Rec: 02/20/17 18:43 [id number] MED-C09) Intake and Output Start: 02/18/17 15: 32 Freq: DAILY@0600,1400,2200 Status: Active Protocol: Document 02/18/17 22:00 [id number] (Rec: 02/18/17 22:27 [id number] MED-C14) Document 02/19/17 05:24 [id number] (Rec: 02/19/17 05:26 [id number] MEDL-C02) Document 02/19/17 14:00 [id number] (Rec: 02/19/17 14:26 [id number] MED-C09) Document 02/19/17 22:00 [id number] (Rec: 02/19/17 22:25 [id number] MED-C11) Document 02/20/17 05:56 [id number] (Rec: 02/20/17 05:57 [id number] MED-C26) Document 02/20/17 14:00 [id number] (Rec: 02/20/17 14:40 [id number] MED-C11) Document 02/20/17 21:51 [id number] (Rec: 02/20/17 21:52 [id number] MED-C09) Document 02/21/17 05:47 [id number] (Rec: 02/21/17 05:58 [id number] MED-C26) - Physical Exam General: No Cyanosis, Yes Anemia, No Jaundice, No Clubbing Skin: Normal: Rash Lungs and Chest: Yes: Chest Expansion Full, Chest Expansion Symetrica, Percussion Note Resonant, Vessicular Breath Sounds. No: Crackles, Wheezes Heart Rate and Rhythm: Regular Additional Cardiovascular: Yes: Normal Heart Sounds, Pedal Edema - trace. No: Heart Murmur Abdominal Exam: Yes: Soft, Bowel Sounds Present. 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
[2017-02-21 08:00] VITALS: BP 148/77
[2017-02-21 08:18] LABS: Hematocrit 38 % (35-47); Hemoglobin 12.7 g/dl (12.0-16.0); Mean Corpuscular HGB Conc 33 g/dl (31-36); Mean Corpuscular Hemoglobin 29 pg (27-31); Mean Corpuscular Volume 87 fL (80-97); Mean Platelet Volume 9 um3 (7.4-10.4); Red Blood Count 4.38 10^6/ul (4.0-5.4); Red Cell Distribution Width 15 % (10.5-15); White Blood Count 12.4 10^3/ul (3.5-10.8)
[2017-02-21 08:29] LABS: Add Diff/Slide Review? Slide Review Added; Comments Flag Yes
[2017-02-21 08:30] LABS: BUN/Creatinine Ratio 26.9 (8-20); C Reactive Protein 69.03 mg/L (< 5.00); Calcium 10.6 mg/dL (8.6-10.3); EGFR African American 37.4 (>60); EGFR Non-African American 29.1 (>60); Potassium 4.5 mmol/L (3.5-5.0)
[2017-02-21] MEDS: Hydrocortisone TAB* 5 MG PO SCH (08:50)
[2017-02-21] MEDS: Insulin LISPRO* 1 UNITS UNIT SUBCUT SCH ×2 (08:50→08:52)
[2017-02-21] MEDS: Cholecalciferol TAB* 1000 UNITS PO SCH (08:52)
[2017-02-21] MEDS: Indapamide TAB* 2.5 MG PO SCH (08:53)
[2017-02-21] MEDS: Insulin GLARGINE(*) 1 UNITS UNIT SUBCUT SCH (08:53)
[2017-02-21] MEDS: Spironolactone TAB* 25 MG PO SCH (08:53)
[2017-02-21] MEDS: Atorvastatin* 40 MG TAB PO SCH (08:53)
[2017-02-21] MEDS ORDERED: FEBUXOSTAT 40 MG PO SCH (09:00)
--- NOTE | 2017-02-21 10:30 | PN ---
Progress Note - Progress Note Date of Service: 02/21/17 SOAP: Subjective: CC: back pain HPI: 77 year old woman with recent onset low back pain and fall, no back pain at rest today. Feels it may come on when she walks. No fever, rash, or diarrhea, appetite is good. Objective: [] Vital Signs Temp 36.6 C 02/21/17 07:35 Pulse 96 02/21/17 08:02 Resp 16 02/21/17 08:50 BP 148/77 02/21/17 07:35 Pulse Ox 98 02/21/17 07:35 Intake & Output 02/20/17 02/21/17 02/21/17 18:59 06:59 18:59 Intake Total 870 400 220 Balance 870 400 220 Intake: Oral 870 400 220 Other: Estimated Void Medium # Bowel Movements 1 0 # Voids 1 Gen:awake Ox3 HEENT:PERRL, MMM Heart:RRR no murmur Lungs:CTA BL Abd:+BS NTND soft Skin: no rash MSK: no spine tenderness Laboratory Results - last 24 hr 02/20/17 02/20/17 02/21/17 12:29 16:48 08:00 WBC 12.4 H RBC 4.38 Hgb 12.7 Hct 38 MCV 87 MCH 29 MCHC 33 RDW 15 Plt Count 357 MPV 9 Neut % (Auto) 69.6 Lymph % (Auto) 16.4 L Jasper % (Auto) 11.2 H Eos % (Auto) 1.5 Baso % (Auto) 1.3 Absolute Neuts (auto) 8.6 H Absolute Lymphs (auto) 2.0 Absolute Monos (auto) 1.4 H Absolute Eos (auto) 0.2 Absolute Basos (auto) 0.2 Absolute Nucleated RBC 0.01 Nucleated RBC % 0.1 Sodium Potassium Chloride Carbon Dioxide Anion Gap BUN Creatinine Est GFR ( Amer) Est GFR (Non-Af Amer) BUN/Creatinine Ratio Glucose POC Glucose (mg/dL) 85 220 H Calcium C-Reactive Protein 02/21/17 02/21/17 08:00 08:37 WBC RBC Hgb Hct MCV MCH MCHC RDW Plt Count MPV Neut % (Auto) Lymph % (Auto) Jasper % (Auto) Eos % (Auto) Baso % (Auto) Absolute Neuts (auto) Absolute Lymphs (auto) Absolute Monos (auto) Absolute Eos (auto) Absolute Basos (auto) Absolute Nucleated RBC Nucleated RBC % Sodium 127 L Potassium 4.5 Chloride 92 L Carbon Dioxide 25 Anion Gap 10 BUN 46 H Creatinine 1.71 H Est GFR ( Amer) 37.4 Est GFR (Non-Af Amer) 29.1 BUN/Creatinine Ratio 26.9 H Glucose 172 H POC Glucose (mg/dL) 165 H Calcium 10.6 H C-Reactive Protein 69.03 H Assessment: 1. low back/sacral pain 2. elevated inflammatory markers; CRP declining and no other systemic symptoms; no clear cause and infectious workup negative to this point. 3. T2DM with neuropathy Plan: 1. continue off of antibiotics, follow inflam markers; ESR will usually take longer to resolve after inciting event.
--- NOTE | 2017-02-22 12:39 | ED ---
Jose C Verma Thomas, scribed for Karlo Barcenas MD on 02/18/17 at 1114 . Back Pain - HPI Summary HPI Summary: The pt is a 77 y/o F BIBA c/o lower back pain that began four days ago and worsened last night. The pain radiates to her lower extremities. The pain is rated 5/10. The pain is aggravated by movement and is alleviated by lying still. 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 She is unable to walk secondary to the pain. Pt denies urinary or fecal dysfunction. She is not on any pain medication or muscle relaxants. PMHx includes spinal stenosis, DM, neuropathy, and gout. - History of Current Complaint Stated Complaint: BACK PAIN Time Seen by Provider: 02/18/17 11:04 Hx Obtained From: Patient Onset/Duration: Lasting Days - 4, Still Present, Worse Since - today Onset/Duration: Still Present Timing: Constant Severity Currently: Moderate Pain Intensity: 5 Pain Scale Used: 0-10 Numeric Aggravating Symptom(s): Movement Alleviating Symptom(s): Other - Lying still Associated Signs And Symptoms: Negative: Bladder Incontinence, Bowel Incontinence - Allergies/Home Medications Allergies/Adverse Reactions: Allergies Allergy/AdvReac Type Severity Reaction Status Date / Time No Known Allergies Allergy Verified 02/18/17 11:17 Home Medications: Home Medications Atorvastatin* [Lipitor*] 40 mg PO DAILY 02/18/17 [History Confirmed 02/18/17] Cholecalciferol TAB* [Vitamin D TAB*] 2,000 units PO DAILY 02/18/17 [History Confirmed 02/18/17] Dorzolamide/Timolol OPTH (NF) [Cosopt (NF)] 1 drop BOTH EYES BID 02/18/17 [ History Confirmed 02/18/17] Febuxostat(NF) [Uloric(NF)] 40 mg PO DAILY 02/18/17 [History Confirmed 02/18/17] Hydrocortisone TAB* [Cortef*] 5 mg PO BID 02/18/17 [History Confirmed 02/18/17] Indapamide TAB* [Lozol TAB*] 2.5 mg PO DAILY 02/18/17 [History Confirmed ] Quinapril HCl 40 mg PO DAILY 02/18/17 [History Confirmed 02/18/17] Repaglinide TAB* [Prandin TAB*] 1 mg PO DAILY WITH MEAL 02/18/17 [History Confirmed 02/18/17] SitaGLIPtin (NF) [Januvia (NF)] 100 mg PO DAILY 02/18/17 [History Confirmed ] Spironolactone TAB* [Aldactone TAB*] 12.5 mg PO DAILY 02/18/17 [History Confirmed 02/18/17] Travoprost Z 0.004% OPHTH (NF) [Travatan Z 0.004% OPTH (NF)] 1 drop BOTH EYES BEDTIME 02/18/17 [History Confirmed 02/18/17] PMH/Surg Hx/FS Hx/Imm Hx Previously Healthy: No Endocrine/Hematology History: Reports: Hx Diabetes Musculoskeletal History: Reports: Hx Gout, Hx Osteoporosis, Other Musculoskeletal History - Spinal stenosis Neurological History: Reports: Hx Peripheral Neuropathy - Surgical History Surgery Procedure, Year, and Place: [facility] SURGERY Infectious Disease History: Denies: Traveled Outside the [place] in Last 30 Days - Family History Known Family History: Positive: Diabetes - Social History Alcohol Use: Rare Substance Use Type: Reports: None Smoking Status (MU): Never Smoked Tobacco Review of Systems Negative: Fever Negative: Other - fecal dysfunction Negative: incontinence Positive: Other - Lower back pain All Other Systems Reviewed And Are Negative: Yes Physical Exam - Summary Physical Exam Summary: VITAL SIGNS: Reviewed. GENERAL: Patient is a well-developed and nourished female who is lying comfortable in the stretcher. Patient is not in any acute respiratory distress. HEAD AND FACE: No signs of trauma. No ecchymosis, hematomas or skull depressions. No sinus tenderness. EYES: PERRLA, EOMI x 2, No injected conjunctiva, no nystagmus. EARS: Hearing grossly intact. Ear canals and tympanic membranes are within normal limits. MOUTH: Oropharynx within normal limits. Dry mucous membranes. NECK: Supple, trachea is midline, no adenopathy, no JVD, no carotid bruit, no c- spine tenderness, neck with full ROM. CHEST: Symmetric, no tenderness at palpation LUNGS: Clear to auscultation bilaterally. No wheezing or crackles. CVS: Regular rate and rhythm, S1 and S2 present, no murmurs or gallops appreciated. ABDOMEN: Soft, non-tender. No signs of distention. No rebound no guarding, and no masses palpated. Bowel sounds are normal. BACK: She is tender to her bilateral paraspinal muscles along the lumbar spine. Straight leg raise is negative. EXTREMITIES: FROM in all major joints, no edema, no cyanosis or clubbing. NEURO: Alert and oriented x 3. No acute neurological deficits. Speech is normal and follows commands. SKIN: Dry and warm Triage Information Reviewed: Yes Vital Signs Reviewed: Yes Diagnostics - Laboratory Result Diagrams: 02/18/17 12:36 02/18/17 12:36 Lab Statement: Any lab studies that have been ordered have been reviewed, and results considered in the medical decision making process. - Radiology XR L-Spine Xray Interpretation: Positive (See Comments) - 1. 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 2. MILD COMPRESSION FRACTURE OF THE INFERIOR ENDPLATE OF THE L2 VERTEBRAL BODY LIKELY CHRONIC. 3. MODERATE TO SEVERE DEGENERATIVE DISC DISEASE. ED physician has reviewed this report and agrees. Radiology Interpretation Completed By: Radiologist - CT CT L-Spine CT Interpretation: Positive (See Comments) - Osteoarthritis with multilevel degenerative disc disease. There is moderate to severe canal stenosis at L4-L4 and L4-L5. Postoperative changes with small laminectomy defects/fusion is present at L4-L5. ED physician has reviewed this report and agrees. CT Interpretation Completed By: Radiologist Back Pain Course/Dx - Course Assessment/Plan: The pt is a 77 y/o F BIBA c/o lower back pain that began four days ago and worsened last night. The pain radiates to her lower extremities. The pain is rated 5/10. The pain is aggravated by movement and is alleviated by lying still. 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 She is unable to walk secondary to the pain. Pt denies urinary or fecal dysfunction. She is not on any pain medication or muscle relaxants. PMHx includes spinal stenosis, DM, neuropathy, and gout. Test results show a WBC of 11.2, a slight anemia, potassium of 3.3 (for which she was given potassium chloride), and CRP 256. Urinalysis was negative for UTI. XR L-Spine shows 1. 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 2. MILD COMPRESSION FRACTURE OF THE INFERIOR ENDPLATE OF THE L2 VERTEBRAL BODY LIKELY CHRONIC. 3. MODERATE TO SEVERE DEGENERATIVE DISC DISEASE. CT L-Spine shows Osteoarthritis with multilevel degenerative disc disease. There is moderate to severe canal stenosis at L4-L4 and L4-L5. Postoperative changes with small laminectomy defects/fusion is present at L4-L5. The patient continues to have pain, although she declined a second dose of morphine for the pain. The patient and the patients report that the patient cannot go home because she is having pain and no one can help her go to the bathroom. Therefore, I discussed the case with Dr. Razo, who recommends admission to the hospitalists. I discussed the case with Dr. Araujo, who accepts the patient for admission. - Diagnoses Provider Diagnoses: Intractable back pain, Inablility to care for self - Provider Notifications Discussed Care Of Patient With: Dee Razo Time Discussed With Above Provider: 14:56 Instructed by Provider To: Other - I consulted with the Dr. Razo, stained glass installer , who recommends admission to the hospitalists. At 15:08, I consulted with Dr. Araujo, hospitalist, who will admit the patient. Discharge - Discharge Plan Condition: Fair Disposition: ADMITTED TO [facility] The documentation as recorded by the Jose C velasquez Thomas accurately reflects the service I personally performed and the decisions made by me, Karlo Barcenas MD.
--- NOTE | 2017-02-23 14:58 | DS ---
DISCHARGE SUMMARY: DATE OF ADMISSION: 02/19/17 DATE OF DISCHARGE: 02/22/17 DISCHARGE DIAGNOSES: 1. Fall at home. 2. Low back pain. 3. Pain in the left lower leg. 4. Type 2 diabetes mellitus, uncontrolled. 5. Chronic anemia. 6. Elevated C-reactive protein and ESR. SECONDARY DIAGNOSES: 1. Stage 4 chronic kidney disease due to diabetic nephropathy. 2. Peripheral neuropathy secondary to diabetes. 3. Essential hypertension. 4. Glaucoma. 5. History of gout. 6. History of pituitary adenoma. 7. Central hypothyroidism. 8. Adrenal insufficiency. 9. Hyperlipidemia. 10. Impairment of balance. 11. Osteoporosis. 12. Spinal stenosis. HISTORY OF PRESENT ILLNESS: Karina Alston is a 77-year-old right-handed white female. Her presentat ion is documented in [facility] NP's, admitting history and physical which is part of the electronic medical record. She has had a history of lumbar stenosis with some chronic back pain and peripheral neuropathy. On the day of presentation, she had a fall on the way to the bathroom, subsequent to [facility] she had some back pain and was brought to the emergency room. She had an unchanged mild compress ion fracture of the L2 vertebral body and a history of spondylolisthesis L4 to L5 likely chronic. PHYSICAL EXAMINATION: Temperature 96.7, pulse 89, respirations 18, oxygen saturation 99%, blood pres sure 132/75. She is alert and oriented x3, able to move all of her extremities. No facial asymmetry or focal weakness. She had tenderness over the midline of her spine at around L4-L5, L5-S1. INITIAL DIAGNOSTIC TESTING: Sodium of 133, potassium 3.3, chloride 97, bicarbonate 26, BUN 22, creat inine 1.54, glucose 315, CRP 256.22, white count of 11.2, hematocrit 34, platelet 228. INITIAL IMPRESSION: History of laminectomy and has spinal stenosis with low back pain. She was admi tted for pain relief and also for evaluation of the increased C- reactive protein. Type 2 diabetes mellitus was noted to be out of control and she was started on insulin. CONSULTATIONS: On 02/20/17, seen by Dr. Craft. He noted the above history and the elevated C-teagan ctive protein of 260; however, it came down rapidly to 130 though her sedimentation rate was elevated at 111. He felt that this was unlikely to be an infection. IMAGING: Lumbar spine CAT scan: Osteoarthritis, multilevel degenerative disk disease, [id number] evere canal stenosis L4-L5 and postoperative changes with small laminectomy defect, L4-L5. MRI of lumbar spine, multilevel degenerative disk disease with multilevel foraminal narrowing and cor d compromised, most severe at L3-L4, grade 1 to 2 anterolisthesis L4-L5 with postsurgical changes. N o evidence of localized fluid collection to suggest epidural abscess. Nuclear medicine, 3-phase bone scan: No evidence of osteomyelitis or diskitis. HOSPITAL COURSE: Karina Alston had resolution of pain during her hospital stay such that on the day of discharge she was able to independently get out of bed and walk up and down the [place] with a walker without any assistance. Type 2 diabetes mellitus out of control. Her A1c was 8.4%; however, her high blood sugar is consiste nt with recent outpatient measurements and has not responded to maximal oral medications and we chose to transfer her onto basal bolus regimen of insulin with planned instruction and titration of the in sulin as an outpatient. Elevated inflammatory markers. I note that her white count was elevated with the percent neutrophils peaking on 02/19 at 89.9 and coming down to 69.6 on 02/21. Her sedimentation rate on the day of dis charge was 69.03. We did not treat with antibiotics and her microbiology was negative. ASSESSMENT AND PLAN: 1. Low back pain. This is responding well to minimal analgesia. I have given her a prescription fo r acetaminophen with codeine as an outpatient. We will follow up with physical therapy as needed to help with her balance. 2. Elevated C-reactive protein and erythrocyte sedimentation rate. The course appears to have been related a fall. The C-reactive protein responding very quickly to conservative therapy and without a ny antibacterial coverage. We will continue to follow this as an outpatient and will look into the p ossibility of myeloma as an outpatient. 3. Out of control type 2 diabetes mellitus. We started on insulin therapy. She will come in for ou tpatient diabetes education and the use of insulin pen devices. She expressed understanding of this. 4. Poor balance, high risk of further falling. She has severe peripheral neuropathy and spinal sten osis. She has become less steady on her feet. We have prescribed a rolling walker for her. She braxton l require physical therapy, which we will arrange as an outpatient. 5. Anemia. This is due to chronic kidney disease. 6. Chronic renal failure, stage 4. This has not worsened. 7. Hypertension, controlled. 8. Osteoporosis. Fortunately, she did not cause any damage during her recent fall. A fall preventi on will remain an important part of her regimen. DISCHARGE MEDICATIONS: 1. Glargine insulin 15 units q. 24 hours. 2. Lispro insulin 4 units a.c. 3. Travoprost Z 0.004% one drop both eyes at bedtime. 4. Febuxostat 40 mg daily for gout. 5. Cholecalciferol 2000 units daily. 6. Spironolactone 12.5 mg daily. 7. Repaglinide 1 mg a.c. 8. Quinapril 40 mg daily. 9. Indapamide 2.5 mg daily. FOLLOWUP: She has appointments to see the experimental mechanic electrical in my office and also followup visit jackie leyva the next week. [id number]/[facility] #: [id number]
== END 2017-02-21 12:05 | disposition home or self-care (01) | DRG 552 ==
LOC: ED 11:00 → MED 15:08 → OBSVTOIN 02-19 14:45
PROVIDERS: ADMIT Internal Medicine; ATTEND Internal Medicine
DX: M54.5 Low back pain (principal); E11.21 Type 2 diabetes mellitus with diabetic nephropathy; E11.42 Type 2 diabetes mellitus with diabetic polyneuropathy; N18.4 Chronic kidney disease, stage 4 (severe); M48.56XA Collapsed vertebra, not elsewhere classified, lumbar region, initial encounter for fracture; E27.40 Unspecified adrenocortical insufficiency; E11.65 Type 2 diabetes mellitus with hyperglycemia; I44.7 Left bundle-branch block, unspecified; E11.22 Type 2 diabetes mellitus with diabetic chronic kidney disease; M51.36 Other intervertebral disc degeneration, lumbar region; M43.16 Spondylolisthesis, lumbar region; M47.9 Spondylosis, unspecified; M48.061 Spinal stenosis, lumbar region without neurogenic claudication; E78.5 Hyperlipidemia, unspecified; Z98.41 Cataract extraction status, right eye; Z80.52 Family history of malignant neoplasm of bladder; Z80.51 Family history of malignant neoplasm of kidney; I12.9 Hypertensive chronic kidney disease with stage 1 through stage 4 chronic kidney disease, or unspecified chronic kidney disease; E87.6 Hypokalemia; M10.9 Gout, unspecified; M81.0 Age-related osteoporosis without current pathological fracture; Z83.3 Family history of diabetes mellitus; R01.1 Cardiac murmur, unspecified; E03.9 Hypothyroidism, unspecified; W18.30XA Fall on same level, unspecified, initial encounter; Y92.009 Unspecified place in unspecified non-institutional (private) residence as the place of occurrence of the external cause; M79.662 Pain in left lower leg; H40.9 Unspecified glaucoma; H52.13 Myopia, bilateral; R70.0 Elevated erythrocyte sedimentation rate; Z85.038 Personal history of other malignant neoplasm of large intestine; Z90.49 Acquired absence of other specified parts of digestive tract; R79.82 Elevated C-reactive protein (CRP); D63.1 Anemia in chronic kidney disease; Z79.4 Long term (current) use of insulin
CPT/HCPCS: 36415; 72100; 72131; 72148; 78315; 80048; 80053; 81003; 83036; 85025; 85027; 85652; 86140; 87040; 93306; A9270-GY; A9503; C8929; G0378; J1100; J1644; J2270; J2360

== ENCOUNTER 2018-06-18 06:51 | Day surgery (SDC) | payer MEDICARE, OTHER ==
[~2018-06-18 06:51] MED LIST: Acetaminophen TAB* 325 MG PO PRN; Buffered Lidocaine 1% SYRIN* 1 ML/SYRINGE INTRADERM ONE; mitoMYcin 0.2 MG (0.02%) in Sterile Water for Inj* 1 ML SCH
[2018-06-18] MEDS ORDERED: Midazolam* 1 MG/ML 2 ML VIAL (2 MG) ONE (07:57)
[2018-06-18 09:06] VITALS: BP 128/83
[2018-06-18] MEDS ORDERED: Neomycin/Polymy/Dex OPTH.SUSP* MAXITROL 0.1% 5 ML ONE (10:06)
[2018-06-18] MEDS ORDERED: Lidocaine 1%* 5 ML VIAL ONE (10:06)
[2018-06-18] MEDS ORDERED: Lidocaine 2% EPI 1:200000 MPF*10-20 ML VIAL ONE (10:06)
[2018-06-18] MEDS ORDERED: Povidone Iodine 5% OPTH* 30 ML BTL ONE (10:07)
[2018-06-18] MEDS ORDERED: Proparacaine 0.5% OPHTH.SOL* 15 ML BTL ONE (10:07)
--- NOTE | 2018-06-18 10:48 | OP ---
OPERATIVE NOTE: DATE OF OPERATION: 06/18/18 DATE OF : 44 SURGEON: Fidel Lopez M.D. ANESTHESIA: Local with MAC. PRE-OP DIAGNOSIS: Uncontrolled glaucoma, left eye. POST-OP DIAGNOSIS: Uncontrolled glaucoma, left eye. OPERATIVE PROCEDURE: XEN stent insertion, left eye. COMPLICATIONS: None. DESCRIPTION OF PROCEDURE: The patient was prepped and draped in the usual sterile fashion. A lid sp eculum was placed. A paracentesis incision was made at the 1 o'clock position with the 75 blade; 1% non-preservative intracameral lidocaine was then flooded into the anterior chamber followed by Provis c. A 1.8 mm clear corneal incision was made at the 5 o'clock position with a keratome. The XEN sten t was placed at the 1 o'clock position subconjunctivally without difficulty using its horse racetrack manager. Jean mycin-C 0.2 mg/mL was injected near the opening of the stent and then the anterior chamber irrigated with balanced salt solution. [id number]/[facility] #: [id number]
== END 2018-06-18 08:48 | disposition home or self-care (01) ==
LOC: OREAST 06:51
PROVIDERS: ATTEND Specialist
DX: H40.1123 Primary open-angle glaucoma, left eye, severe stage (principal); E11.9 Type 2 diabetes mellitus without complications; Z79.4 Long term (current) use of insulin; H43.813 Vitreous degeneration, bilateral; E03.9 Hypothyroidism, unspecified; I10 Essential (primary) hypertension; M81.0 Age-related osteoporosis without current pathological fracture; E78.00 Pure hypercholesterolemia, unspecified; Z85.038 Personal history of other malignant neoplasm of large intestine; I44.7 Left bundle-branch block, unspecified
CPT/HCPCS: A9270-GY; C1725; J2250; J9280

== ENCOUNTER 2018-06-25 06:48 | Day surgery (SDC) | payer MEDICARE, OTHER ==
[2018-06-25 07:22] VITALS: BP 145/66
[2018-06-25] MEDS ORDERED: Midazolam* 1 MG/ML 2 ML VIAL (2 MG) ONE (08:26)
[2018-06-25] MEDS ORDERED: fentaNYL* 50 MCG/ML 2 ML VIAL (100 MCG VIAL) ONE (08:26)
[2018-06-25] MEDS ORDERED: Neomycin/Polymy/Dex OPTH.SUSP* MAXITROL 0.1% 5 ML ONE (09:57)
[2018-06-25] MEDS ORDERED: Lidocaine 2% EPI 1:200000 MPF*10-20 ML VIAL ONE (09:57)
[2018-06-25] MEDS ORDERED: Lidocaine 1%* 5 ML VIAL ONE (09:57)
[2018-06-25] MEDS ORDERED: Proparacaine 0.5% OPHTH.SOL* 15 ML BTL ONE (09:57)
[2018-06-25] MEDS ORDERED: Povidone Iodine 5% OPTH* 30 ML BTL ONE (09:57)
--- NOTE | 2018-06-25 10:42 | OP ---
OPERATIVE NOTE: DATE OF OPERATION: 06/25/18 DATE OF : 44 SURGEON: Fidel Lopez MD. ANESTHESIA: Local with MAC. COMPLICATIONS: None. PRE-OP DIAGNOSIS: Uncontrolled glaucoma, right. POST-OP DIAGNOSIS: Uncontrolled glaucoma, right. OPERATIVE PROCEDURE: XEN implant, right. DESCRIPTION OF PROCEDURE: The patient was prepped and draped in usual sterile fashion. A lid specul um was placed. A paracentesis made at the 11 o'clock position with the 75 blade. Anterior chamber i rrigated with 1% non-preserved intracameral lidocaine and then followed by ProVisc. Clear corneal 1. 8 mm incision was made at the 7 o'clock position with keratome. The XEN implant placed at 1 o'clock without difficulty using its shooter. Mitomycin-C 0.2 mg/mL infused near the tip of the implant subc onjunctivally. Then the anterior chamber thoroughly irrigated with balanced salt solution. [id number]/[facility] #: [id number]
== END 2018-06-25 09:12 | disposition home or self-care (01) ==
LOC: OREAST 06:48
PROVIDERS: ATTEND Specialist
DX: H40.1113 Primary open-angle glaucoma, right eye, severe stage (principal); E11.40 Type 2 diabetes mellitus with diabetic neuropathy, unspecified; Z79.4 Long term (current) use of insulin; E03.9 Hypothyroidism, unspecified; E78.00 Pure hypercholesterolemia, unspecified
CPT/HCPCS: A9270-GY; C1725; J2250; J3010; J9280

== ENCOUNTER 2019-09-13 17:03 | Inpatient (IN) ==
[2019-09-13 18:36] LABS: ABS Eosinophils 0.2 10^3/ul (0-0.6); ABS Lymphocytes 0.9 10^3/ul (1.0-4.8); ABS Monocytes 0.8 10^3/ul (0-0.8); Eosinophil % 1.2 %; Hematocrit 39 % (35-47); Hemoglobin 12.9 g/dL (12.0-16.0); Mean Corpuscular HGB Conc 33 g/dL (31-36); Mean Corpuscular Hemoglobin 29 pg (27-31); Mean Corpuscular Volume 88 fL (80-97); Mean Platelet Volume 8.7 fL (7.4-10.4); Platelet Count 221 10^3/uL (150-450); Red Blood Count 4.47 10^6 /uL (3.70-4.87); Red Cell Distribution Width 16 % (10-15); White Blood Count 13.1 10^3/uL (3.5-10.8)
[2019-09-13 18:40] LABS: INR 1.03 (0.82-1.09)
[2019-09-13 18:49] LABS: Albumin 4.1 g/dL (3.2-5.2); Albumin/Globulin Ratio 1.4 (1-3); BUN/Creatinine Ratio 22.8 (8-20); Calcium 9.8 mg/dL (8.6-10.3); EGFR Non-African American 28.9 (>60); Potassium 3.6 mmol/L (3.5-5.0); Total Bilirubin 0.7 mg/dL (0.2-1.0); Total Protein 7.1 g/dL (6.4-8.9)
[2019-09-13] MEDS ORDERED: Morphine 2 MG/ML SYRINGE IV PRN (19:42)
[2019-09-13] MEDS ORDERED: Dextrose 50% Syringe 50 ml 25 GM/50 ML SYRINGE IV PUSH PRN (19:46)
[2019-09-13] MEDS ORDERED: Insulin GLARGINE 100 un/ml (*) 10 ml VIAL SUBCUT SCH (20:00)
[2019-09-13] MEDS ORDERED: Enoxaparin 30 MG/0.3 ML SYR(*) SUBCUT SCH (20:00)
[2019-09-13] MEDS ORDERED: oxyCODONE/Acetamin 5/325 mg TAB PO PRN (20:20)
[2019-09-13] MEDS ORDERED: TIMOLOL BOTH EYES SCH (21:00)
[2019-09-13] MEDS ORDERED: TRAVOPROST 0.004% RIGHT EYE SCH (21:00)
[2019-09-13] MEDS ORDERED: OPTH BOTH EYES SCH (21:00)
[2019-09-13] MEDS ORDERED: BRIMONIDINE BOTH EYES SCH (21:00)
[2019-09-13] MEDS: Ondansetron 4 mg VIAL 2 MG/ML 2 ml VIAL IV PRN (21:37)
[2019-09-13] MEDS: oxyCODONE/Acetamin 5/325 mg TAB PO PRN (22:05)
[2019-09-13] MEDS: Insulin GLARGINE 100 un/ml (*) 10 ml VIAL SUBCUT SCH (22:06)
[2019-09-13] MEDS: Insulin LISPRO 100 units/ml(*) SUBCUT SCH (22:07)
[2019-09-13] MEDS: PTO:Travoprost 0.004% (NF) OPHTH.SOLN RIGHT EYE SCH (23:25)
[2019-09-13] MEDS: PTO:Brimonidine/Timolol 0.2%/0.5% OPTH(NF) SOL 5 ML BOTH EYES SCH (23:25)
[2019-09-13] MEDS: Hydrocortisone INJ 100 MG/2ML 2 ML VIAL IV SCH (23:31)
[2019-09-14] MEDS ORDERED: NS 0.9% 1000 ml BAG 1,000 ML IV SCH
[2019-09-14 05:58] LABS: ABS Eosinophils 0.1 10^3/ul (0-0.6); ABS Lymphocytes 0.5 10^3/ul (1.0-4.8); ABS Monocytes 0.7 10^3/ul (0-0.8); Eosinophil % 0.8 %; Hematocrit 33 % (35-47); Hemoglobin 11.4 g/dL (12.0-16.0); Lymphocyte % 3.7 %; Mean Corpuscular HGB Conc 34 g/dL (31-36); Mean Corpuscular Hemoglobin 30 pg (27-31); Mean Corpuscular Volume 87 fL (80-97); Platelet Count 193 10^3/uL (150-450); Red Blood Count 3.84 10^6 /uL (3.70-4.87); Red Cell Distribution Width 16 % (10-15); White Blood Count 13.9 10^3/uL (3.5-10.8)
[2019-09-14 06:45] LABS: Calcium 8.8 mg/dL (8.6-10.3); Potassium 4.4 mmol/L (3.5-5.0)
[2019-09-14 06:51] LABS: EGFR Non-African American 29.7 (>60)
[2019-09-14] MEDS ORDERED: Insulin LISPRO 100 units/ml(*) SUBCUT SCH (07:30)
[2019-09-14] MEDS ORDERED: Febuxostat 40 mg TAB (NF) PO SCH (09:00)
[2019-09-14] MEDS: Hydrocortisone INJ 100 MG/2ML 2 ML VIAL IV SCH ×3 (10:27→23:28)
[2019-09-14] MEDS: oxyCODONE/Acetamin 5/325 mg TAB PO PRN (10:32)
[2019-09-14] MEDS: PTO:Brimonidine/Timolol 0.2%/0.5% OPTH(NF) SOL 5 ML BOTH EYES SCH ×2 (10:38→21:58)
[2019-09-14] MEDS: Insulin LISPRO 100 units/ml(*) SUBCUT SCH ×4 (10:39→21:47)
[2019-09-14] MEDS ORDERED: Diazepam 5 mg TAB (*) PO PRN (11:59)
[2019-09-14] MEDS ORDERED: NS 0.9% 1000 ml BAG 1,000 ML IV ONE (12:13)
[2019-09-14 12:28] LABS: Urine Appearance Clear; Urine Bilirubin Negative (Negative); Urine Blood Negative (Negative); Urine Color Yellow; Urine Glucose Negative (Negative); Urine Ketones Negative (Negative); Urine Nitrite Negative (Negative); Urine Protein Negative (Negative); Urine Specific Gravity 1.017 (1.010-1.030); Urine Urobilinogen Negative (Negative)
[2019-09-14] MEDS ORDERED: Norepinephrine 16MCG/ML IVPRE 4,000 MCG/250 ML BAG IV SCH (13:00)
[2019-09-14] MEDS ORDERED: Perflutren Lipid Microsphere 3 ML VIAL ONE (13:35)
[2019-09-14] MEDS: Lactated Ringers 1000 ml BAG 1,000 ML IV SCH (13:45)
[2019-09-14 14:40] LABS: Troponin I 0.01 ng/mL (<0.03)
[2019-09-14 14:41] LABS: CRP High Sensitivity > 480.00 mg/L (<2.00)
[2019-09-14 14:55] LABS: Glucose 142 mg/dL (70-100)
[2019-09-14] MEDS ORDERED: Rocuronium 50 mg VIAL 10 mg/ml 5 ml VIAL (50 mg) ONE (16:22)
[2019-09-14] MEDS ORDERED: fentaNYL 100 mcg/2 ml 50 MCG/ML VIAL ONE (16:30)
[2019-09-14] MEDS ORDERED: Lidocaine 2% PF 5 ML VIAL ONE (16:31)
[2019-09-14] MEDS ORDERED: Lidocaine 0.5% SDV 50 ML VIAL ONE (16:31)
[2019-09-14] MEDS ORDERED: Ketamine HCL 50 mg/ml 10 ml VIAL (500 MG) ONE (16:45)
[2019-09-14] MEDS ORDERED: Sodium Chloride 0.9% 20 ML ONE (16:46)
[2019-09-14] MEDS ORDERED: Midazolam 2 mg/2 ml VIAL 1 mg/ml 2 ml VIAL (2 mg) ONE (16:47)
[2019-09-14] MEDS ORDERED: ceFAZolin 2 GM PREMIX in ORs 2 GM/50 ML BAG ONE (17:06)
[2019-09-14] MEDS ORDERED: Vancomycin(*) 1,000 MG VIAL ONE (19:46)
[2019-09-14] MEDS ORDERED: DiMENhydriNATE IV 50 mg/ml 1 ml VIAL IV PUSH PRN (19:52)
[2019-09-14] MEDS ORDERED: Ondansetron 4 mg VIAL 2 MG/ML 2 ml VIAL IV PRN (19:52)
[2019-09-14] MEDS ORDERED: HYDROmorphone 1 MG/1 ML SYRINGE IV PRN (19:52)
[2019-09-14] MEDS ORDERED: Naloxone 0.4 mg VIAL 0.4 mg/ml 1 ml VIAL IV PRN (19:52)
[2019-09-14] MEDS: Insulin GLARGINE 100 un/ml (*) 10 ml VIAL SUBCUT SCH (21:58)
[2019-09-14] MEDS: PTO:Travoprost 0.004% (NF) OPHTH.SOLN RIGHT EYE SCH (21:58)
[2019-09-15 05:33] LABS: Hematocrit 27 % (35-47); Hemoglobin 9.1 g/dL (12.0-16.0); Mean Platelet Volume 9.3 fL (7.4-10.4); Platelet Count 156 10^3/uL (150-450)
[2019-09-15 05:51] LABS: BUN/Creatinine Ratio 21.5 (8-20); Calcium 7.7 mg/dL (8.6-10.3); Potassium 3.8 mmol/L (3.5-5.0)
[2019-09-15] MEDS: CEFAZOLIN 1 GM IVPB SCH ×2 (06:25→18:32)
[2019-09-15] MEDS: [UNRECOGNIZED DRUG - OTHER] IVPB SCH ×2 (06:25→18:32)
[2019-09-15] MEDS: Lactated Ringers 1000 ml BAG 1,000 ML IV SCH ×2 (06:49→12:28)
[2019-09-15] MEDS: Hydrocortisone INJ 100 MG/2ML 2 ML VIAL IV SCH ×3 (07:01→23:40)
[2019-09-15] MEDS: Insulin LISPRO 100 units/ml(*) SUBCUT SCH ×4 (09:13→22:03)
[2019-09-15] MEDS: PTO:Brimonidine/Timolol 0.2%/0.5% OPTH(NF) SOL 5 ML BOTH EYES SCH ×2 (09:16→22:20)
[2019-09-15] MEDS: Insulin GLARGINE 100 un/ml (*) 10 ml VIAL SUBCUT SCH (22:04)
[2019-09-15] MEDS: PTO:Travoprost 0.004% (NF) OPHTH.SOLN RIGHT EYE SCH (22:20)
[2019-09-16] MEDS: Lactated Ringers 1000 ml BAG 1,000 ML IV SCH (02:00)
[2019-09-16] MEDS: CEFAZOLIN 1 GM IVPB SCH ×2 (06:01→18:18)
[2019-09-16] MEDS: [UNRECOGNIZED DRUG - OTHER] IVPB SCH ×2 (06:01→18:18)
[2019-09-16] MEDS: Insulin LISPRO 100 units/ml(*) SUBCUT SCH ×4 (08:25→21:25)
[2019-09-16] MEDS: PTO:Brimonidine/Timolol 0.2%/0.5% OPTH(NF) SOL 5 ML BOTH EYES SCH ×2 (08:56→21:20)
[2019-09-16] MEDS: Hydrocortisone INJ 100 MG/2ML 2 ML VIAL IV SCH ×3 (09:14→21:26)
[2019-09-16 09:47] LABS: Hematocrit 29 % (35-47); Hemoglobin 9.5 g/dL (12.0-16.0); Platelet Count 153 10^3/uL (150-450)
[2019-09-16 09:50] LABS: Calcium 8.4 mg/dL (8.6-10.3); Potassium 3.3 mmol/L (3.5-5.0)
[2019-09-16] MEDS ORDERED: Potassium Chloride LIQUID 20 MEQ/15 ML LIQUID PO ONE (11:47)
[2019-09-16] MEDS: Ondansetron 4 mg VIAL 2 MG/ML 2 ml VIAL IV PRN (15:00)
[2019-09-16] MEDS ORDERED: Polyethylene Glycol 3350 17 GM PACKET PO PRN (17:01)
[2019-09-16] MEDS ORDERED: Magnesium Hydroxide LIQ 30 ML UDC PO PRN (17:01)
[2019-09-16] MEDS ORDERED: Senna TAB 8.6 mg TAB PO PRN (17:01)
[2019-09-16] MEDS: Insulin GLARGINE 100 un/ml (*) 10 ml VIAL SUBCUT SCH (21:24)
[2019-09-16] MEDS: PTO:Travoprost 0.004% (NF) OPHTH.SOLN RIGHT EYE SCH (21:32)
[2019-09-17] MEDS: [UNRECOGNIZED DRUG - OTHER] IVPB SCH ×2 (06:01→17:12)
[2019-09-17] MEDS: CEFAZOLIN 1 GM IVPB SCH ×2 (06:01→17:12)
[2019-09-17 07:16] LABS: Hematocrit 26 % (35-47); Hemoglobin 8.9 g/dL (12.0-16.0); Mean Platelet Volume 10.3 fL (7.4-10.4); Platelet Count 173 10^3/uL (150-450)
[2019-09-17 07:31] LABS: BUN/Creatinine Ratio 21.9 (8-20); Calcium 8.6 mg/dL (8.6-10.3); EGFR African American 45.2 (>60); EGFR Non-African American 37.4 (>60); Potassium 3.7 mmol/L (3.5-5.0)
[2019-09-17 07:54] LABS: Mean Corpuscular HGB Conc 34 g/dL (31-36); Mean Corpuscular Hemoglobin 29 pg (27-31); Mean Corpuscular Volume 87 fL (80-97); Red Blood Count 3.03 10^6 /uL (3.70-4.87); Red Cell Distribution Width 16 % (10-15); White Blood Count 13.1 10^3/uL (3.5-10.8)
[2019-09-17 07:56] LABS: ABS Lymphocytes 0.6 10^3/ul (1.0-4.8); Eosinophil % 0.3 %; Lymphocyte % 4.3 %; Nucleated Red Blood Cells % 0.1
[2019-09-17] MEDS: PTO:Brimonidine/Timolol 0.2%/0.5% OPTH(NF) SOL 5 ML BOTH EYES SCH ×2 (07:59→22:45)
[2019-09-17] MEDS: Hydrocortisone INJ 100 MG/2ML 2 ML VIAL IV SCH ×2 (08:01→22:48)
[2019-09-17 08:08] LABS: C Reactive Protein 321.65 mg/L (<8.01)
[2019-09-17] MEDS: Insulin LISPRO 100 units/ml(*) SUBCUT SCH ×4 (09:27→22:46)
[2019-09-17] MEDS: PTO:Travoprost 0.004% (NF) OPHTH.SOLN RIGHT EYE SCH (22:46)
[2019-09-17] MEDS: Insulin GLARGINE 100 un/ml (*) 10 ml VIAL SUBCUT SCH (22:47)
[2019-09-18 05:55] LABS: Hematocrit 25 % (35-47); Hemoglobin 8.2 g/dL (12.0-16.0); Platelet Count 228 10^3/uL (150-450)
[2019-09-18 06:16] LABS: BUN/Creatinine Ratio 22.7 (8-20); Calcium 8.4 mg/dL (8.6-10.3); EGFR African American 43.8 (>60); EGFR Non-African American 36.2 (>60); Potassium 3.4 mmol/L (3.5-5.0)
[2019-09-18 07:30] VITALS: BP 149/53
[2019-09-18] MEDS: PTO:Brimonidine/Timolol 0.2%/0.5% OPTH(NF) SOL 5 ML BOTH EYES SCH (08:18)
[2019-09-18] MEDS: Insulin LISPRO 100 units/ml(*) SUBCUT SCH (08:29)
[2019-09-18] MEDS ORDERED: Hydrocortisone INJ 100 MG/2ML 2 ML VIAL IV SCH (09:00)
== END 2019-09-18 09:00 | DRG 469 ==
LOC: ED 17:03 → SSU 19:15 → ICU 09-14 12:10 → SSU 09-15 09:50
PROVIDERS: ADMIT Nurse Practitioner Adult Health; ATTEND Internal Medicine

== ENCOUNTER 2019-09-18 07:45 | Inpatient (IN) ==
[2019-09-18] MEDS ORDERED: Al Hydrox/Mg Hydrox/Simet LIQ 30 ML UDC PO PRN (09:31)
[2019-09-18] MEDS ORDERED: Magnesium Hydroxide LIQ 30 ML UDC PO PRN (09:31)
[2019-09-18] MEDS ORDERED: Dextrose 50% Syringe 50 ml 25 GM/50 ML SYRINGE IV PUSH PRN (09:45)
[2019-09-18] MEDS ORDERED: Hydrocortisone INJ 100 MG/2ML 2 ML VIAL IV ONE (09:49)
[2019-09-18] MEDS: Polyethylene Glycol 3350 17 GM PACKET PO SCH (11:24)
[2019-09-18] MEDS: PTO: Brimonidine/Timolol 0.2%/0.5% OPTH(NF) SOL 5 ML BOTH EYES SCH (20:01)
[2019-09-18] MEDS: PTO: Travoprost Z 0.004% OPHTH (NF) 2.5 ML BTL RIGHT EYE SCH (20:48)
[2019-09-18] MEDS: Insulin GLARGINE 100 un/ml 10 ml VIAL SUBCUT SCH (20:49)
[2019-09-19 06:58] LABS: Hematocrit 24 % (35-47); Hemoglobin 8.2 g/dL (12.0-16.0); Mean Corpuscular HGB Conc 34 g/dL (31-36); Mean Corpuscular Hemoglobin 30 pg (27-31); Mean Corpuscular Volume 86 fL (80-97); Mean Platelet Volume 8.7 fL (7.4-10.4); Platelet Count 263 10^3/uL (150-450); Red Blood Count 2.77 10^6 /uL (3.70-4.87); Red Cell Distribution Width 16 % (10-15); White Blood Count 10.8 10^3/uL (3.5-10.8)
[2019-09-19 07:21] LABS: BUN/Creatinine Ratio 25.6 (8-20); Calcium 8.6 mg/dL (8.6-10.3); EGFR African American 46.8 (>60); EGFR Non-African American 38.7 (>60); Globulin 2.9 g/dL (2-4); Total Bilirubin 0.9 mg/dL (0.2-1.0); Total Protein 5.9 g/dL (6.4-8.9)
[2019-09-19] MEDS: Ondansetron ODT 4 mg TAB 4 MG TAB SL PRN (09:02)
[2019-09-19] MEDS: Polyethylene Glycol 3350 17 GM PACKET PO SCH (09:41)
[2019-09-19] MEDS: PTO: Brimonidine/Timolol 0.2%/0.5% OPTH(NF) SOL 5 ML BOTH EYES SCH ×2 (09:53→21:22)
[2019-09-19 10:33] LABS: Magnesium 2.1 mg/dL (1.9-2.7)
[2019-09-19 10:51] LABS: ABS Eosinophils 0.3 10^3/ul (0-0.6)
[2019-09-19] MEDS: Calcium Carb 1250 mg TAB (500 mg elemental calcium) PO SCH ×2 (11:45→21:21)
[2019-09-19] MEDS: Potassium Chlor 20 meq TAB.ER PO SCH ×3 (11:45→21:21)
[2019-09-19] MEDS: Insulin GLARGINE 100 un/ml 10 ml VIAL SUBCUT SCH (21:20)
[2019-09-19] MEDS: PTO: Travoprost Z 0.004% OPHTH (NF) 2.5 ML BTL RIGHT EYE SCH (21:22)
[2019-09-20 05:56] LABS: Hematocrit 25 % (35-47); Hemoglobin 8.3 g/dL (12.0-16.0); Mean Corpuscular HGB Conc 34 g/dL (31-36); Mean Corpuscular Hemoglobin 29 pg (27-31); Mean Corpuscular Volume 87 fL (80-97); Platelet Count 287 10^3/uL (150-450); Red Blood Count 2.86 10^6 /uL (3.70-4.87); Red Cell Distribution Width 16 % (10-15); White Blood Count 10.8 10^3/uL (3.5-10.8)
[2019-09-20 06:13] LABS: BUN/Creatinine Ratio 24.5 (8-20); Calcium 8.7 mg/dL (8.6-10.3); EGFR African American 44.5 (>60); EGFR Non-African American 36.8 (>60); Potassium 3.7 mmol/L (3.5-5.0)
[2019-09-20 06:53] LABS: ABS Basophils 0.1 10^3/ul (0-0.2); ABS Eosinophils 0.4 10^3/ul (0-0.6); ABS Lymphocytes 1.6 10^3/ul (1.0-4.8); ABS Monocytes 1.2 10^3/ul (0-0.8); Eosinophil % 3.5 %; Lymphocyte % 15.2 %; Nucleated Red Blood Cells % 0.1
[2019-09-20 06:55] LABS: Microcytosis 1+; Polychromasia 1+
[2019-09-20] MEDS: PTO: Brimonidine/Timolol 0.2%/0.5% OPTH(NF) SOL 5 ML BOTH EYES SCH ×2 (10:36→21:14)
[2019-09-20] MEDS: Polyethylene Glycol 3350 17 GM PACKET PO SCH (10:37)
[2019-09-20] MEDS: Potassium Chlor 20 meq TAB.ER PO SCH (12:22)
[2019-09-20] MEDS: Calcium Carb 1250 mg TAB (500 mg elemental calcium) PO SCH (12:22)
[2019-09-20] MEDS: Insulin GLARGINE 100 un/ml 10 ml VIAL SUBCUT SCH (21:20)
[2019-09-20] MEDS: PTO: Travoprost Z 0.004% OPHTH (NF) 2.5 ML BTL RIGHT EYE SCH (21:22)
[2019-09-21] MEDS: Polyethylene Glycol 3350 17 GM PACKET PO SCH (09:19)
[2019-09-21] MEDS: PTO: Brimonidine/Timolol 0.2%/0.5% OPTH(NF) SOL 5 ML BOTH EYES SCH ×2 (09:21→20:41)
[2019-09-21] MEDS: Insulin GLARGINE 100 un/ml 10 ml VIAL SUBCUT SCH (21:00)
[2019-09-21] MEDS: PTO: Travoprost Z 0.004% OPHTH (NF) 2.5 ML BTL RIGHT EYE SCH (21:01)
[2019-09-22] MEDS: Ondansetron ODT 4 mg TAB 4 MG TAB SL PRN (08:42)
[2019-09-22] MEDS: Polyethylene Glycol 3350 17 GM PACKET PO SCH (10:55)
[2019-09-22] MEDS: PTO: Brimonidine/Timolol 0.2%/0.5% OPTH(NF) SOL 5 ML BOTH EYES SCH ×2 (11:13→20:43)
[2019-09-22] MEDS: HYDROcodone/ACETAMIN 5/325 mg TAB PO PRN (16:23)
[2019-09-22] MEDS: PTO: Travoprost Z 0.004% OPHTH (NF) 2.5 ML BTL RIGHT EYE SCH (20:44)
[2019-09-22] MEDS: Insulin GLARGINE 100 un/ml 10 ml VIAL SUBCUT SCH (20:48)
[2019-09-23] MEDS: HYDROcodone/ACETAMIN 5/325 mg TAB PO PRN ×2 (01:53→22:51)
[2019-09-23 05:44] LABS: Hematocrit 25 % (35-47); Hemoglobin 8.4 g/dL (12.0-16.0); Mean Corpuscular HGB Conc 33 g/dL (31-36); Mean Corpuscular Hemoglobin 29 pg (27-31); Mean Corpuscular Volume 87 fL (80-97); Mean Platelet Volume 8.3 fL (7.4-10.4); Platelet Count 520 10^3/uL (150-450); Red Blood Count 2.92 10^6 /uL (3.70-4.87); Red Cell Distribution Width 16 % (10-15); White Blood Count 13.9 10^3/uL (3.5-10.8)
[2019-09-23 06:25] LABS: ABS Basophils 0.1 10^3/ul (0-0.2); ABS Eosinophils 0.3 10^3/ul (0-0.6); ABS Lymphocytes 1.7 10^3/ul (1.0-4.8); Eosinophil % 2.4 %; Lymphocyte % 11.9 %; Nucleated Red Blood Cells % 0.1
[2019-09-23 07:22] LABS: Albumin 3.1 g/dL (3.2-5.2); Albumin/Globulin Ratio 1.2 (1-3); BUN/Creatinine Ratio 21.4 (8-20); Calcium 8.6 mg/dL (8.6-10.3); EGFR African American 44.1 (>60); EGFR Non-African American 36.5 (>60); Globulin 2.6 g/dL (2-4); Potassium 3.9 mmol/L (3.5-5.0); Total Bilirubin 0.9 mg/dL (0.2-1.0); Total Protein 5.7 g/dL (6.4-8.9)
[2019-09-23] MEDS: PTO: Brimonidine/Timolol 0.2%/0.5% OPTH(NF) SOL 5 ML BOTH EYES SCH ×2 (10:35→20:47)
[2019-09-23] MEDS: Polyethylene Glycol 3350 17 GM PACKET PO SCH (10:38)
[2019-09-23] MEDS: Insulin GLARGINE 100 un/ml 10 ml VIAL SUBCUT SCH (21:20)
[2019-09-23] MEDS: PTO: Travoprost Z 0.004% OPHTH (NF) 2.5 ML BTL RIGHT EYE SCH (21:20)
[2019-09-24] MEDS: Polyethylene Glycol 3350 17 GM PACKET PO SCH (08:16)
[2019-09-24] MEDS: PTO: Brimonidine/Timolol 0.2%/0.5% OPTH(NF) SOL 5 ML BOTH EYES SCH ×2 (08:18→21:50)
[2019-09-24] MEDS: HYDROcodone/ACETAMIN 5/325 mg TAB PO PRN (12:00)
[2019-09-24] MEDS: PTO: Travoprost Z 0.004% OPHTH (NF) 2.5 ML BTL RIGHT EYE SCH (21:54)
[2019-09-24] MEDS: Insulin GLARGINE 100 un/ml 10 ml VIAL SUBCUT SCH (21:54)
[2019-09-25 05:27] LABS: ABS Basophils 0.1 10^3/ul (0-0.2); ABS Eosinophils 0.3 10^3/ul (0-0.6); ABS Lymphocytes 1.5 10^3/ul (1.0-4.8); Eosinophil % 1.9 %; Hematocrit 25 % (35-47); Hemoglobin 8.4 g/dL (12.0-16.0); Lymphocyte % 11.1 %; Mean Corpuscular HGB Conc 34 g/dL (31-36); Mean Corpuscular Hemoglobin 30 pg (27-31); Mean Corpuscular Volume 89 fL (80-97); Mean Platelet Volume 8.6 fL (7.4-10.4); Platelet Count 632 10^3/uL (150-450); Red Blood Count 2.81 10^6 /uL (3.70-4.87); Red Cell Distribution Width 17 % (10-15); White Blood Count 13.1 10^3/uL (3.5-10.8)
[2019-09-25] MEDS: HYDROcodone/ACETAMIN 5/325 mg TAB PO PRN (08:15)
[2019-09-25] MEDS: PTO: Brimonidine/Timolol 0.2%/0.5% OPTH(NF) SOL 5 ML BOTH EYES SCH (08:17)
[2019-09-25] MEDS: Polyethylene Glycol 3350 17 GM PACKET PO SCH (08:21)
[2019-09-25 18:04] LABS: Hematocrit 28 % (35-47); Hemoglobin 9.2 g/dL (12.0-16.0); Mean Corpuscular HGB Conc 33 g/dL (31-36); Mean Corpuscular Hemoglobin 29 pg (27-31); Mean Corpuscular Volume 89 fL (80-97); Platelet Count 592 10^3/uL (150-450); Red Blood Count 3.17 10^6 /uL (3.70-4.87); Red Cell Distribution Width 17 % (10-15); White Blood Count 15.2 10^3/uL (3.5-10.8)
[2019-09-25 18:13] LABS: Activated Partial Thrombo Time 36.7 seconds (26.0-38.0); INR 1.46 (0.82-1.09)
[2019-09-25 18:21] LABS: Albumin 3.6 g/dL (3.2-5.2); Albumin/Globulin Ratio 1.2 (1-3); BUN/Creatinine Ratio 20.4 (8-20); C Reactive Protein 49.64 mg/L (<8.01); Calcium 9.2 mg/dL (8.6-10.3); EGFR African American 38.7 (>60); EGFR Non-African American 31.9 (>60); Potassium 4.3 mmol/L (3.5-5.0); Total Bilirubin 0.9 mg/dL (0.2-1.0); Total Protein 6.6 g/dL (6.4-8.9)
[2019-09-26] MEDS: PTO: Brimonidine/Timolol 0.2%/0.5% OPTH(NF) SOL 5 ML BOTH EYES SCH ×2 (14:38→22:16)
[2019-09-26] MEDS: Insulin GLARGINE 100 un/ml 10 ml VIAL SUBCUT SCH ×2 (14:39→23:37)
[2019-09-26] MEDS: PTO: Travoprost Z 0.004% OPHTH (NF) 2.5 ML BTL RIGHT EYE SCH ×2 (14:40→22:28)
[2019-09-26] MEDS: Polyethylene Glycol 3350 17 GM PACKET PO SCH (14:41)
[2019-09-27] MEDS: Polyethylene Glycol 3350 17 GM PACKET PO SCH (08:34)
[2019-09-27] MEDS: PTO: Brimonidine/Timolol 0.2%/0.5% OPTH(NF) SOL 5 ML BOTH EYES SCH ×2 (08:40→21:15)
[2019-09-27] MEDS: Insulin GLARGINE 100 un/ml 10 ml VIAL SUBCUT SCH (21:40)
[2019-09-27] MEDS: PTO: Travoprost Z 0.004% OPHTH (NF) 2.5 ML BTL RIGHT EYE SCH (21:41)
[2019-09-28] MEDS: HYDROcodone/ACETAMIN 5/325 mg TAB PO PRN (01:49)
[2019-09-28 06:51] LABS: Hematocrit 26 % (35-47); Hemoglobin 8.8 g/dL (12.0-16.0); Mean Corpuscular HGB Conc 34 g/dL (31-36); Mean Corpuscular Hemoglobin 30 pg (27-31); Mean Corpuscular Volume 89 fL (80-97); Mean Platelet Volume 8.1 fL (7.4-10.4); Platelet Count 695 10^3/uL (150-450); Red Blood Count 2.94 10^6 /uL (3.70-4.87); Red Cell Distribution Width 17 % (10-15); White Blood Count 11.4 10^3/uL (3.5-10.8)
[2019-09-28 07:08] LABS: Albumin 3.4 g/dL (3.2-5.2); Albumin/Globulin Ratio 1.3 (1-3); BUN/Creatinine Ratio 16.4 (8-20); Calcium 8.7 mg/dL (8.6-10.3); EGFR African American 44.1 (>60); EGFR Non-African American 36.5 (>60); Globulin 2.7 g/dL (2-4); Total Bilirubin 0.8 mg/dL (0.2-1.0); Total Protein 6.1 g/dL (6.4-8.9)
[2019-09-28 08:46] LABS: ABS Basophils 0.1 10^3/ul (0-0.2); ABS Eosinophils 0.3 10^3/ul (0-0.6); ABS Lymphocytes 1.3 10^3/ul (1.0-4.8); ABS Monocytes 1.1 10^3/ul (0-0.8); Eosinophil % 2.8 %; Lymphocyte % 11.2 %; Nucleated Red Blood Cells % 0.1
[2019-09-28] MEDS: PTO: Brimonidine/Timolol 0.2%/0.5% OPTH(NF) SOL 5 ML BOTH EYES SCH ×2 (09:03→21:14)
[2019-09-28] MEDS: Polyethylene Glycol 3350 17 GM PACKET PO SCH (09:03)
[2019-09-28] MEDS: Insulin GLARGINE 100 un/ml 10 ml VIAL SUBCUT SCH (21:18)
[2019-09-28] MEDS: PTO: Travoprost Z 0.004% OPHTH (NF) 2.5 ML BTL RIGHT EYE SCH (21:20)
[2019-09-29] MEDS: HYDROcodone/ACETAMIN 5/325 mg TAB PO PRN ×2 (00:39→09:23)
[2019-09-29] MEDS: PTO: Brimonidine/Timolol 0.2%/0.5% OPTH(NF) SOL 5 ML BOTH EYES SCH ×2 (09:14→20:49)
[2019-09-29] MEDS: Polyethylene Glycol 3350 17 GM PACKET PO SCH (09:15)
[2019-09-29] MEDS: Insulin GLARGINE 100 un/ml 10 ml VIAL SUBCUT SCH (20:48)
[2019-09-29] MEDS: PTO: Travoprost Z 0.004% OPHTH (NF) 2.5 ML BTL RIGHT EYE SCH (20:50)
[2019-09-30] MEDS: HYDROcodone/ACETAMIN 5/325 mg TAB PO PRN ×2 (01:00→17:59)
[2019-09-30] MEDS: PTO: Brimonidine/Timolol 0.2%/0.5% OPTH(NF) SOL 5 ML BOTH EYES SCH ×2 (09:03→20:21)
[2019-09-30] MEDS: Polyethylene Glycol 3350 17 GM PACKET PO SCH (09:03)
[2019-09-30] MEDS: PTO: Travoprost Z 0.004% OPHTH (NF) 2.5 ML BTL RIGHT EYE SCH (20:00)
[2019-09-30] MEDS: [UNRECOGNIZED DRUG - OTHER] BOTH EYES PRN (20:55)
[2019-09-30] MEDS: Insulin GLARGINE 100 un/ml 10 ml VIAL SUBCUT SCH (20:56)
[2019-10-01] MEDS: Polyethylene Glycol 3350 17 GM PACKET PO SCH (09:13)
[2019-10-01] MEDS: PTO: Brimonidine/Timolol 0.2%/0.5% OPTH(NF) SOL 5 ML BOTH EYES SCH ×2 (09:29→20:22)
[2019-10-01] MEDS: HYDROcodone/ACETAMIN 5/325 mg TAB PO PRN ×2 (14:36→23:05)
[2019-10-01] MEDS: Insulin GLARGINE 100 un/ml 10 ml VIAL SUBCUT SCH (20:22)
[2019-10-01] MEDS: PTO: Travoprost Z 0.004% OPHTH (NF) 2.5 ML BTL RIGHT EYE SCH (20:48)
[2019-10-01] MEDS: [UNRECOGNIZED DRUG - OTHER] BOTH EYES PRN (21:07)
[2019-10-02] MEDS: HYDROcodone/ACETAMIN 5/325 mg TAB PO PRN ×2 (04:19→17:22)
[2019-10-02] MEDS: [UNRECOGNIZED DRUG - OTHER] BOTH EYES PRN ×2 (04:21→08:36)
[2019-10-02] MEDS: PTO: Brimonidine/Timolol 0.2%/0.5% OPTH(NF) SOL 5 ML BOTH EYES SCH ×2 (08:24→21:11)
[2019-10-02] MEDS: Polyethylene Glycol 3350 17 GM PACKET PO SCH (08:27)
[2019-10-02] MEDS: Insulin GLARGINE 100 un/ml 10 ml VIAL SUBCUT SCH (21:17)
[2019-10-02] MEDS: PTO: Travoprost Z 0.004% OPHTH (NF) 2.5 ML BTL RIGHT EYE SCH (21:32)
[2019-10-03] MEDS: HYDROcodone/ACETAMIN 5/325 mg TAB PO PRN ×3 (05:37→23:16)
[2019-10-03] MEDS: Polyethylene Glycol 3350 17 GM PACKET PO SCH (09:30)
[2019-10-03] MEDS: PTO: Brimonidine/Timolol 0.2%/0.5% OPTH(NF) SOL 5 ML BOTH EYES SCH ×2 (09:59→20:06)
[2019-10-03] MEDS: Insulin GLARGINE 100 un/ml 10 ml VIAL SUBCUT SCH (20:07)
[2019-10-03] MEDS: PTO: Travoprost Z 0.004% OPHTH (NF) 2.5 ML BTL RIGHT EYE SCH (20:25)
[2019-10-03] MEDS: [UNRECOGNIZED DRUG - OTHER] BOTH EYES PRN (20:38)
[2019-10-04] MEDS: HYDROcodone/ACETAMIN 5/325 mg TAB PO PRN ×2 (05:20→17:45)
[2019-10-04] MEDS: PTO: Brimonidine/Timolol 0.2%/0.5% OPTH(NF) SOL 5 ML BOTH EYES SCH ×2 (08:56→21:25)
[2019-10-04] MEDS: Polyethylene Glycol 3350 17 GM PACKET PO SCH (08:57)
[2019-10-04] MEDS: PTO: Travoprost Z 0.004% OPHTH (NF) 2.5 ML BTL RIGHT EYE SCH (21:54)
[2019-10-04] MEDS: Insulin GLARGINE 100 un/ml 10 ml VIAL SUBCUT SCH (21:56)
[2019-10-04] MEDS: [UNRECOGNIZED DRUG - OTHER] BOTH EYES PRN (22:02)
[2019-10-05 05:44] LABS: ABS Basophils 0.1 10^3/ul (0-0.2); ABS Eosinophils 0.4 10^3/ul (0-0.6); ABS Lymphocytes 1.1 10^3/ul (1.0-4.8); Eosinophil % 5.6 %; Hematocrit 29 % (35-47); Hemoglobin 9.7 g/dL (12.0-16.0); Lymphocyte % 15.1 %; Mean Corpuscular HGB Conc 34 g/dL (31-36); Mean Corpuscular Hemoglobin 30 pg (27-31); Mean Corpuscular Volume 88 fL (80-97); Mean Platelet Volume 7.9 fL (7.4-10.4); Platelet Count 539 10^3/uL (150-450); Red Blood Count 3.26 10^6 /uL (3.70-4.87); Red Cell Distribution Width 18 % (10-15)
[2019-10-05 06:01] LABS: Albumin 3.6 g/dL (3.2-5.2); Albumin/Globulin Ratio 1.2 (1-3); BUN/Creatinine Ratio 17.6 (8-20); Calcium 9.1 mg/dL (8.6-10.3); EGFR African American 45.6 (>60); EGFR Non-African American 37.7 (>60); Potassium 3.9 mmol/L (3.5-5.0); Total Bilirubin 0.8 mg/dL (0.2-1.0); Total Protein 6.6 g/dL (6.4-8.9)
[2019-10-05] MEDS: HYDROcodone/ACETAMIN 5/325 mg TAB PO PRN (09:51)
[2019-10-05] MEDS: PTO: Brimonidine/Timolol 0.2%/0.5% OPTH(NF) SOL 5 ML BOTH EYES SCH ×2 (09:51→21:28)
[2019-10-05] MEDS: Polyethylene Glycol 3350 17 GM PACKET PO SCH (09:57)
[2019-10-05] MEDS: Insulin GLARGINE 100 un/ml 10 ml VIAL SUBCUT SCH (21:29)
[2019-10-05] MEDS: PTO: Travoprost Z 0.004% OPHTH (NF) 2.5 ML BTL RIGHT EYE SCH (21:32)
[2019-10-05] MEDS: [UNRECOGNIZED DRUG - OTHER] BOTH EYES PRN (21:39)
[2019-10-06] MEDS: PTO: Brimonidine/Timolol 0.2%/0.5% OPTH(NF) SOL 5 ML BOTH EYES SCH ×2 (10:04→20:28)
[2019-10-06] MEDS: Polyethylene Glycol 3350 17 GM PACKET PO SCH (10:06)
[2019-10-06] MEDS: PTO: Travoprost Z 0.004% OPHTH (NF) 2.5 ML BTL RIGHT EYE SCH (20:44)
[2019-10-06] MEDS: [UNRECOGNIZED DRUG - OTHER] BOTH EYES PRN (21:05)
[2019-10-06] MEDS: Insulin GLARGINE 100 un/ml 10 ml VIAL SUBCUT SCH (21:05)
[2019-10-07] MEDS: Polyethylene Glycol 3350 17 GM PACKET PO SCH (11:12)
[2019-10-07] MEDS: PTO: Brimonidine/Timolol 0.2%/0.5% OPTH(NF) SOL 5 ML BOTH EYES SCH ×2 (11:16→20:45)
[2019-10-07] MEDS: PTO: Travoprost Z 0.004% OPHTH (NF) 2.5 ML BTL RIGHT EYE SCH (20:45)
[2019-10-07] MEDS: Insulin GLARGINE 100 un/ml 10 ml VIAL SUBCUT SCH (20:45)
[2019-10-07] MEDS: [UNRECOGNIZED DRUG - OTHER] BOTH EYES PRN (21:16)
[2019-10-08] MEDS: HYDROcodone/ACETAMIN 5/325 mg TAB PO PRN ×2 (00:17→15:43)
[2019-10-08] MEDS: PTO: Brimonidine/Timolol 0.2%/0.5% OPTH(NF) SOL 5 ML BOTH EYES SCH ×2 (10:16→20:51)
[2019-10-08] MEDS: Polyethylene Glycol 3350 17 GM PACKET PO SCH (10:28)
[2019-10-08] MEDS: Insulin GLARGINE 100 un/ml 10 ml VIAL SUBCUT SCH (20:52)
[2019-10-08] MEDS: PTO: Travoprost Z 0.004% OPHTH (NF) 2.5 ML BTL RIGHT EYE SCH (20:57)
[2019-10-08] MEDS: [UNRECOGNIZED DRUG - OTHER] BOTH EYES PRN (21:03)
[2019-10-09] MEDS: HYDROcodone/ACETAMIN 5/325 mg TAB PO PRN ×2 (00:20→11:17)
[2019-10-09] MEDS: PTO: Brimonidine/Timolol 0.2%/0.5% OPTH(NF) SOL 5 ML BOTH EYES SCH ×2 (09:37→21:05)
[2019-10-09] MEDS: Polyethylene Glycol 3350 17 GM PACKET PO SCH (09:43)
[2019-10-09] MEDS: Insulin GLARGINE 100 un/ml 10 ml VIAL SUBCUT SCH (21:08)
[2019-10-09] MEDS: PTO: Travoprost Z 0.004% OPHTH (NF) 2.5 ML BTL RIGHT EYE SCH (21:09)
[2019-10-09] MEDS: [UNRECOGNIZED DRUG - OTHER] BOTH EYES PRN (21:09)
[2019-10-10] MEDS: HYDROcodone/ACETAMIN 5/325 mg TAB PO PRN (01:55)
[2019-10-10] MEDS: Polyethylene Glycol 3350 17 GM PACKET PO SCH (09:37)
[2019-10-10] MEDS: PTO: Brimonidine/Timolol 0.2%/0.5% OPTH(NF) SOL 5 ML BOTH EYES SCH ×2 (09:53→21:01)
[2019-10-10] MEDS: Insulin GLARGINE 100 un/ml 10 ml VIAL SUBCUT SCH (20:45)
[2019-10-10] MEDS: PTO: Travoprost Z 0.004% OPHTH (NF) 2.5 ML BTL RIGHT EYE SCH (21:47)
[2019-10-11] MEDS: HYDROcodone/ACETAMIN 5/325 mg TAB PO PRN ×2 (05:55→17:47)
[2019-10-11] MEDS: PTO: Brimonidine/Timolol 0.2%/0.5% OPTH(NF) SOL 5 ML BOTH EYES SCH ×2 (09:00→21:00)
[2019-10-11] MEDS: Polyethylene Glycol 3350 17 GM PACKET PO SCH (09:01)
[2019-10-11] MEDS: Insulin GLARGINE 100 un/ml 10 ml VIAL SUBCUT SCH (20:54)
[2019-10-11] MEDS: PTO: Travoprost Z 0.004% OPHTH (NF) 2.5 ML BTL RIGHT EYE SCH (21:39)
[2019-10-12] MEDS: HYDROcodone/ACETAMIN 5/325 mg TAB PO PRN ×3 (01:57→18:35)
[2019-10-12 05:06] LABS: ABS Eosinophils 0.5 10^3/ul (0-0.6); ABS Lymphocytes 0.9 10^3/ul (1.0-4.8); ABS Monocytes 0.9 10^3/ul (0-0.8); Eosinophil % 7.5 %; Hematocrit 26 % (35-47); Hemoglobin 8.7 g/dL (12.0-16.0); Lymphocyte % 12.1 %; Mean Corpuscular HGB Conc 33 g/dL (31-36); Mean Corpuscular Hemoglobin 29 pg (27-31); Mean Corpuscular Volume 86 fL (80-97); Mean Platelet Volume 8.7 fL (7.4-10.4); Platelet Count 381 10^3/uL (150-450); Red Blood Count 3.03 10^6 /uL (3.70-4.87); Red Cell Distribution Width 18 % (10-15); White Blood Count 7.1 10^3/uL (3.5-10.8)
[2019-10-12 05:23] LABS: Albumin 3.2 g/dL (3.2-5.2); Albumin/Globulin Ratio 1.2 (1-3); BUN/Creatinine Ratio 19.9 (8-20); Calcium 8.4 mg/dL (8.6-10.3); EGFR African American 37.5 (>60); Globulin 2.6 g/dL (2-4); Potassium 3.7 mmol/L (3.5-5.0); Total Bilirubin 0.5 mg/dL (0.2-1.0); Total Protein 5.8 g/dL (6.4-8.9)
[2019-10-12] MEDS: PTO: Brimonidine/Timolol 0.2%/0.5% OPTH(NF) SOL 5 ML BOTH EYES SCH ×2 (08:35→20:50)
[2019-10-12] MEDS: Polyethylene Glycol 3350 17 GM PACKET PO SCH (08:59)
[2019-10-12 15:02] LABS: TSH (Thyroid Stimulating Horm) 5.38 mcIU/mL (0.34-5.60)
[2019-10-12 15:04] LABS: Free T4 1.29 ng/dL (0.61-1.12)
[2019-10-12] MEDS: [UNRECOGNIZED DRUG - OTHER] BOTH EYES PRN (20:50)
[2019-10-12] MEDS: PTO: Travoprost Z 0.004% OPHTH (NF) 2.5 ML BTL RIGHT EYE SCH (20:51)
[2019-10-12] MEDS: Insulin GLARGINE 100 un/ml 10 ml VIAL SUBCUT SCH (20:52)
[2019-10-13] MEDS: PTO: Brimonidine/Timolol 0.2%/0.5% OPTH(NF) SOL 5 ML BOTH EYES SCH ×2 (11:00→20:53)
[2019-10-13] MEDS: Polyethylene Glycol 3350 17 GM PACKET PO SCH (11:02)
[2019-10-13] MEDS: Insulin GLARGINE 100 un/ml 10 ml VIAL SUBCUT SCH (20:54)
[2019-10-13] MEDS: PTO: Travoprost Z 0.004% OPHTH (NF) 2.5 ML BTL RIGHT EYE SCH (20:56)
[2019-10-13] MEDS: [UNRECOGNIZED DRUG - OTHER] BOTH EYES PRN (20:56)
[2019-10-13] MEDS: HYDROcodone/ACETAMIN 5/325 mg TAB PO PRN (20:57)
[2019-10-13] MEDS: Ciprofloxacin 0.3% OPTH.SOL BTL RIGHT EYE SCH (22:09)
[2019-10-14] MEDS: Ciprofloxacin 0.3% OPTH.SOL BTL RIGHT EYE SCH ×6 (01:36→22:09)
[2019-10-14] MEDS: HYDROcodone/ACETAMIN 5/325 mg TAB PO PRN (01:36)
[2019-10-14] MEDS: PTO: Brimonidine/Timolol 0.2%/0.5% OPTH(NF) SOL 5 ML BOTH EYES SCH ×2 (10:36→20:57)
[2019-10-14] MEDS: Polyethylene Glycol 3350 17 GM PACKET PO SCH (10:36)
[2019-10-14] MEDS: Insulin GLARGINE 100 un/ml 10 ml VIAL SUBCUT SCH (21:00)
[2019-10-14] MEDS: PTO: Travoprost Z 0.004% OPHTH (NF) 2.5 ML BTL RIGHT EYE SCH (21:09)
[2019-10-14] MEDS: [UNRECOGNIZED DRUG - OTHER] BOTH EYES PRN (21:18)
[2019-10-15] MEDS: Ciprofloxacin 0.3% OPTH.SOL BTL RIGHT EYE SCH ×6 (02:39→23:07)
[2019-10-15] MEDS: PTO: Brimonidine/Timolol 0.2%/0.5% OPTH(NF) SOL 5 ML BOTH EYES SCH ×2 (11:18→20:55)
[2019-10-15] MEDS: Polyethylene Glycol 3350 17 GM PACKET PO SCH (11:19)
[2019-10-15] MEDS: HYDROcodone/ACETAMIN 5/325 mg TAB PO PRN (11:19)
[2019-10-15] MEDS: PTO: Travoprost Z 0.004% OPHTH (NF) 2.5 ML BTL RIGHT EYE SCH (20:57)
[2019-10-15] MEDS: Insulin GLARGINE 100 un/ml 10 ml VIAL SUBCUT SCH (20:58)
[2019-10-15] MEDS: [UNRECOGNIZED DRUG - OTHER] BOTH EYES PRN (21:05)
[2019-10-16] MEDS: Ciprofloxacin 0.3% OPTH.SOL BTL RIGHT EYE SCH ×6 (02:52→21:49)
[2019-10-16] MEDS: PTO: Brimonidine/Timolol 0.2%/0.5% OPTH(NF) SOL 5 ML BOTH EYES SCH ×2 (09:13→21:09)
[2019-10-16] MEDS: Polyethylene Glycol 3350 17 GM PACKET PO SCH (09:14)
[2019-10-16] MEDS: HYDROcodone/ACETAMIN 5/325 mg TAB PO PRN (18:49)
[2019-10-16] MEDS: Senna TAB 8.6 mg TAB PO PRN (21:10)
[2019-10-16] MEDS: Insulin GLARGINE 100 un/ml 10 ml VIAL SUBCUT SCH (21:11)
[2019-10-16] MEDS: [UNRECOGNIZED DRUG - OTHER] BOTH EYES PRN (21:13)
[2019-10-16] MEDS: PTO: Travoprost Z 0.004% OPHTH (NF) 2.5 ML BTL RIGHT EYE SCH (21:13)
[2019-10-17] MEDS: Ciprofloxacin 0.3% OPTH.SOL BTL RIGHT EYE SCH ×6 (01:02→22:08)
[2019-10-17] MEDS: PTO: Brimonidine/Timolol 0.2%/0.5% OPTH(NF) SOL 5 ML BOTH EYES SCH ×2 (09:39→20:08)
[2019-10-17] MEDS: Polyethylene Glycol 3350 17 GM PACKET PO SCH (09:41)
[2019-10-17] MEDS: PTO: Travoprost Z 0.004% OPHTH (NF) 2.5 ML BTL RIGHT EYE SCH (20:09)
[2019-10-17] MEDS: [UNRECOGNIZED DRUG - OTHER] BOTH EYES PRN (20:09)
[2019-10-17] MEDS: HYDROcodone/ACETAMIN 5/325 mg TAB PO PRN (20:10)
[2019-10-18] MEDS: Ciprofloxacin 0.3% OPTH.SOL BTL RIGHT EYE SCH ×6 (02:05→21:42)
[2019-10-18] MEDS: PTO: Brimonidine/Timolol 0.2%/0.5% OPTH(NF) SOL 5 ML BOTH EYES SCH ×2 (09:22→20:47)
[2019-10-18] MEDS: Polyethylene Glycol 3350 17 GM PACKET PO SCH (09:23)
[2019-10-18] MEDS: PTO: Travoprost Z 0.004% OPHTH (NF) 2.5 ML BTL RIGHT EYE SCH (20:48)
[2019-10-18] MEDS: [UNRECOGNIZED DRUG - OTHER] BOTH EYES PRN (20:49)
[2019-10-19] MEDS: Ciprofloxacin 0.3% OPTH.SOL BTL RIGHT EYE SCH ×6 (02:15→22:56)
[2019-10-19 06:55] LABS: ABS Eosinophils 0.1 10^3/ul (0-0.6); ABS Monocytes 0.9 10^3/ul (0-0.8); Eosinophil % 1.8 %; Hematocrit 29 % (35-47); Hemoglobin 9.8 g/dL (12.0-16.0); Mean Corpuscular HGB Conc 33 g/dL (31-36); Mean Corpuscular Hemoglobin 29 pg (27-31); Mean Corpuscular Volume 87 fL (80-97); Mean Platelet Volume 8.5 fL (7.4-10.4); Platelet Count 332 10^3/uL (150-450); Red Blood Count 3.37 10^6 /uL (3.70-4.87); Red Cell Distribution Width 18 % (10-15); White Blood Count 7.6 10^3/uL (3.5-10.8)
[2019-10-19 07:01] LABS: Albumin 3.4 g/dL (3.2-5.2); CO2 Carbon Dioxide 27 mmol/L (22-32); Calcium 8.4 mg/dL (8.6-10.3); Chloride 99 mmol/L (101-111); Sodium 133 mmol/L (135-145)
[2019-10-19 07:07] LABS: ALT 22 U/L (7-52); Albumin/Globulin Ratio 1.3 (1-3); Alkaline Phosphatase 354 U/L (34-104); BUN/Creatinine Ratio 20.4 (8-20); Blood Urea Nitrogen 29 mg/dL (6-24); EGFR African American 43.4 (>60); EGFR Non-African American 35.9 (>60); Globulin 2.7 g/dL (2-4); Glucose 97 mg/dL (70-100); Total Protein 6.1 g/dL (6.4-8.9)
[2019-10-19 08:05] LABS: Anion Gap 7 mmol/L (2-11)
[2019-10-19] MEDS: Polyethylene Glycol 3350 17 GM PACKET PO SCH (08:50)
[2019-10-19] MEDS: PTO: Brimonidine/Timolol 0.2%/0.5% OPTH(NF) SOL 5 ML BOTH EYES SCH ×2 (08:50→21:19)
[2019-10-19 11:00] LABS: Potassium Redraw 4.1 mmol/L (3.5-5.0)
[2019-10-19] MEDS: PTO: Travoprost Z 0.004% OPHTH (NF) 2.5 ML BTL RIGHT EYE SCH (21:27)
[2019-10-19] MEDS: [UNRECOGNIZED DRUG - OTHER] BOTH EYES PRN (21:32)
[2019-10-20] MEDS: Ciprofloxacin 0.3% OPTH.SOL BTL RIGHT EYE SCH ×6 (02:08→20:42)
[2019-10-20] MEDS: PTO: Brimonidine/Timolol 0.2%/0.5% OPTH(NF) SOL 5 ML BOTH EYES SCH ×2 (09:14→20:25)
[2019-10-20] MEDS: Polyethylene Glycol 3350 17 GM PACKET PO SCH (09:15)
[2019-10-20] MEDS: PTO: Travoprost Z 0.004% OPHTH (NF) 2.5 ML BTL RIGHT EYE SCH (20:42)
[2019-10-21] MEDS: Ciprofloxacin 0.3% OPTH.SOL BTL RIGHT EYE SCH ×6 (01:15→21:47)
[2019-10-21] MEDS: Polyethylene Glycol 3350 17 GM PACKET PO SCH (07:41)
[2019-10-21] MEDS: PTO: Brimonidine/Timolol 0.2%/0.5% OPTH(NF) SOL 5 ML BOTH EYES SCH ×2 (07:42→20:18)
[2019-10-21] MEDS: [UNRECOGNIZED DRUG - OTHER] BOTH EYES PRN (20:19)
[2019-10-21] MEDS: PTO: Travoprost Z 0.004% OPHTH (NF) 2.5 ML BTL RIGHT EYE SCH (20:22)
[2019-10-21] MEDS: Senna TAB 8.6 mg TAB PO PRN (20:23)
[2019-10-22] MEDS: Ciprofloxacin 0.3% OPTH.SOL BTL RIGHT EYE SCH ×5 (01:12→17:50)
[2019-10-22] MEDS: PTO: Brimonidine/Timolol 0.2%/0.5% OPTH(NF) SOL 5 ML BOTH EYES SCH ×2 (09:38→20:45)
[2019-10-22] MEDS: Polyethylene Glycol 3350 17 GM PACKET PO SCH (09:40)
[2019-10-22] MEDS: PTO: Travoprost Z 0.004% OPHTH (NF) 2.5 ML BTL RIGHT EYE SCH (20:48)
[2019-10-22] MEDS: [UNRECOGNIZED DRUG - OTHER] BOTH EYES PRN (20:51)
[2019-10-23 04:51] LABS: ABS Eosinophils 0.1 10^3/ul (0-0.6); ABS Lymphocytes 0.8 10^3/ul (1.0-4.8); ABS Monocytes 0.7 10^3/ul (0-0.8); Eosinophil % 1.4 %; Hematocrit 27 % (35-47); Hemoglobin 8.8 g/dL (12.0-16.0); Lymphocyte % 11.8 %; Mean Corpuscular HGB Conc 33 g/dL (31-36); Mean Corpuscular Hemoglobin 29 pg (27-31); Mean Corpuscular Volume 88 fL (80-97); Mean Platelet Volume 8.2 fL (7.4-10.4); Platelet Count 334 10^3/uL (150-450); Red Blood Count 3.04 10^6 /uL (3.70-4.87); Red Cell Distribution Width 18 % (10-15); White Blood Count 6.7 10^3/uL (3.5-10.8)
[2019-10-23 05:15] LABS: Albumin 3.3 g/dL (3.2-5.2); Albumin/Globulin Ratio 1.3 (1-3); BUN/Creatinine Ratio 22.4 (8-20); Calcium 8.1 mg/dL (8.6-10.3); EGFR African American 43.1 (>60); EGFR Non-African American 35.6 (>60); Globulin 2.5 g/dL (2-4); Total Bilirubin 0.4 mg/dL (0.2-1.0); Total Protein 5.8 g/dL (6.4-8.9)
[2019-10-23 06:26] VITALS: BP 155/56
[2019-10-23] MEDS: Polyethylene Glycol 3350 17 GM PACKET PO SCH (08:16)
[2019-10-23] MEDS: PTO: Brimonidine/Timolol 0.2%/0.5% OPTH(NF) SOL 5 ML BOTH EYES SCH (08:18)
== END 2019-10-23 15:00 | disposition home health service (06) | DRG 560 ==
LOC: PMRU 09:38 → UNDODISIN 09-25 18:45 → PMRU 09-26 13:33
PROVIDERS: ADMIT Physical Medicine & Rehabilitation; ATTEND Physical Medicine & Rehabilitation

== ENCOUNTER 2019-12-16 10:11 | Observation (INO) ==
[2019-12-16 11:33] LABS: Hematocrit 38 % (35-47); Mean Corpuscular HGB Conc 32 g/dL (31-36); Mean Corpuscular Hemoglobin 27 pg (27-31); Mean Corpuscular Volume 86 fL (80-97); Mean Platelet Volume 8.2 fL (7.4-10.4); Platelet Count 326 10^3/uL (150-450); Red Blood Count 4.43 10^6 /uL (3.70-4.87); Red Cell Distribution Width 18 % (10-15); White Blood Count 8.6 10^3/uL (3.5-10.8)
[2019-12-16 11:46] LABS: Albumin 3.6 g/dL (3.2-5.2); Calcium 8.9 mg/dL (8.6-10.3); Magnesium 1.7 mg/dL (1.9-2.7); Potassium 3.6 mmol/L (3.5-5.0); Total Bilirubin 0.6 mg/dL (0.2-1.0)
[2019-12-16 11:53] LABS: Albumin/Globulin Ratio 1.3 (1-3); BUN/Creatinine Ratio 15.4 (8-20); EGFR African American 54.3 (>60); EGFR Non-African American 44.9 (>60); Globulin 2.8 g/dL (2-4); Total Protein 6.4 g/dL (6.4-8.9); Troponin I 0.01 ng/mL (<0.03)
[2019-12-16 12:02] LABS: ABS Basophils 0.1 10^3/ul (0-0.2); ABS Lymphocytes 1.5 10^3/ul (1.0-4.8); ABS Monocytes 1.5 10^3/ul (0-0.8); ABS Neutrophils 5.5 10^3/ul (1.5-7.7); Lymphocyte % 17.1 %; Nucleated Red Blood Cells % 0.1
[2019-12-16] MEDS ORDERED: Iodixanol (CONTRAST) 320 MG/ML 100 ML SDV IV ONE (12:47)
[2019-12-16 14:28] LABS: Urine Appearance Clear; Urine Bilirubin Negative (Negative); Urine Blood Negative (Negative); Urine Color Yellow; Urine Glucose 1+(50 mg/dL) (Negative); Urine Ketones Negative (Negative); Urine Nitrite Negative (Negative); Urine Protein Negative (Negative); Urine Specific Gravity 1.024 (1.010-1.030); Urine Urobilinogen Negative (Negative)
[2019-12-16] MEDS ORDERED: Magnesium Sulfate 2 gm BAG 2 GM/50 ML BAG IVPB ONE (16:14)
[2019-12-16] MEDS: Heparin 5000 UNITS/ML 1 mL VIAL SUBCUT SCH (21:08)
[2019-12-17] MEDS: Heparin 5000 UNITS/ML 1 mL VIAL SUBCUT SCH ×2 (08:45→20:28)
[2019-12-17] MEDS: Collagenase 250 units/gm OINT 1 tube TOPICAL SCH ×3 (10:29→20:31)
[2019-12-17] MEDS ORDERED: Magnesium Hydroxide LIQ 30 ML UDC PO PRN (11:34)
[2019-12-17] MEDS ORDERED: Senna TAB 8.6 mg TAB PO PRN (11:34)
[2019-12-17 12:45] LABS: Hematocrit 34 % (35-47); Hemoglobin 11.1 g/dL (12.0-16.0); Mean Corpuscular HGB Conc 33 g/dL (31-36); Mean Corpuscular Hemoglobin 28 pg (27-31); Mean Corpuscular Volume 85 fL (80-97); Mean Platelet Volume 8.6 fL (7.4-10.4); Platelet Count 309 10^3/uL (150-450); Red Blood Count 3.96 10^6 /uL (3.70-4.87); Red Cell Distribution Width 18 % (10-15); White Blood Count 7.8 10^3/uL (3.5-10.8)
[2019-12-17 13:04] LABS: BUN/Creatinine Ratio 14.8 (8-20); Calcium 8.5 mg/dL (8.6-10.3); EGFR African American 55.4 (>60); EGFR Non-African American 45.8 (>60); Magnesium 2.1 mg/dL (1.9-2.7)
[2019-12-17 13:31] LABS: ABS Basophils 0.1 10^3/ul (0-0.2); ABS Lymphocytes 0.8 10^3/ul (1.0-4.8); ABS Monocytes 0.5 10^3/ul (0-0.8); ABS Neutrophils 6.4 10^3/ul (1.5-7.7); Lymphocyte % 9.7 %; Nucleated Red Blood Cells % 0.3
[2019-12-18 07:02] LABS: Hematocrit 33 % (35-47); Mean Corpuscular HGB Conc 33 g/dL (31-36); Mean Corpuscular Hemoglobin 28 pg (27-31); Mean Corpuscular Volume 84 fL (80-97); Mean Platelet Volume 8.1 fL (7.4-10.4); Platelet Count 331 10^3/uL (150-450); Red Blood Count 3.95 10^6 /uL (3.70-4.87); Red Cell Distribution Width 17 % (10-15); White Blood Count 7.9 10^3/uL (3.5-10.8)
[2019-12-18 07:24] LABS: BUN/Creatinine Ratio 14.2 (8-20); Calcium 8.4 mg/dL (8.6-10.3); EGFR African American 56.5 (>60); EGFR Non-African American 46.7 (>60); Magnesium 1.9 mg/dL (1.9-2.7); Potassium 3.6 mmol/L (3.5-5.0)
[2019-12-18] MEDS: Heparin 5000 UNITS/ML 1 mL VIAL SUBCUT SCH (08:56)
[2019-12-18] MEDS: Collagenase 250 units/gm OINT 1 tube TOPICAL SCH (08:56)
[2019-12-18 09:22] LABS: ABS Basophils 0.1 10^3/ul (0-0.2); ABS Lymphocytes 1.3 10^3/ul (1.0-4.8); ABS Monocytes 0.8 10^3/ul (0-0.8); ABS Neutrophils 5.8 10^3/ul (1.5-7.7); Eosinophil % 0.1 %; Lymphocyte % 16.2 %; Nucleated Red Blood Cells % 0.1
[2019-12-18 15:46] VITALS: BP 151/58
== END 2019-12-18 16:40 | disposition home or self-care (01) ==
LOC: MED 10:11 → ED 10:11 → MED 16:47
PROVIDERS: ADMIT Student in an Organized Health Care Education/Training Program; ATTEND Internal Medicine

== ENCOUNTER 2020-09-08 11:29 | Inpatient (IN) ==
[2020-09-08 12:36] LABS: ABS Basophils 0.1 10^3/ul (0-0.2); ABS Eosinophils 0.4 10^3/ul (0-0.6); ABS Lymphocytes 1.1 10^3/ul (1.0-4.8); ABS Monocytes 1.2 10^3/ul (0-0.8); ABS Neutrophils 7.6 10^3/ul (1.5-7.7); Eosinophil % 3.8 %; Hematocrit 31 % (35-47); Hemoglobin 10.2 g/dL (12.0-16.0); Lymphocyte % 10.2 %; Mean Corpuscular HGB Conc 32 g/dL (31-36); Mean Corpuscular Hemoglobin 28 pg (27-31); Mean Corpuscular Volume 87 fL (80-97); Mean Platelet Volume 9.1 fL (7.4-10.4); Nucleated Red Blood Cells % 0.1; Platelet Count 258 10^3/uL (150-450); Red Blood Count 3.61 10^6 /uL (3.70-4.87); Red Cell Distribution Width 17 % (10-15); White Blood Count 10.3 10^3/uL (3.5-10.8)
[2020-09-08 12:43] LABS: INR 1.12 (0.82-1.09)
[2020-09-08 12:53] LABS: Albumin 3.3 g/dL (3.2-5.2); Albumin/Globulin Ratio 1.2 (1-3); C Reactive Protein 237.45 mg/L (<8.01); Calcium 8.7 mg/dL (8.6-10.3); EGFR African American 50.2 (>60); EGFR Non-African American 41.4 (>60); Globulin 2.8 g/dL (2-4); Magnesium 1.6 mg/dL (1.9-2.7); Potassium 3.2 mmol/L (3.5-5.0); Total Bilirubin 0.9 mg/dL (0.2-1.0); Total Protein 6.1 g/dL (6.4-8.9)
[2020-09-08] MEDS ORDERED: oxyCODONE/Acetamin 5/325 mg TAB PO ONE (13:25)
[2020-09-08] MEDS ORDERED: Potassium Chlor 20 meq TAB.ER PO ONE (13:36)
[2020-09-08] MEDS ORDERED: Magnesium Sulf 4 GM/100 ML IV 4,000 MG/100 ML BAG IVPB ONE (13:37)
[2020-09-08] MEDS ORDERED: Iodixanol (CONTRAST) 320 MG/ML 100 ML SDV IV ONE (15:59)
[2020-09-08] MEDS: KCL 10 MEQ/50 ML IVPREMIX 10 MEQ/50 ML BAG IV SCH ×2 (17:39→20:44)
[2020-09-08] MEDS ORDERED: ceFAZolin 1 GM ADVAN 1 GM in NS 0.9% 50 ML 50 ML IVPB SCH (18:00)
[2020-09-08] MEDS ORDERED: NS 0.9% 1000 ml BAG 1,000 ML IV SCH (18:00)
[2020-09-08] MEDS ORDERED: Insulin GLARGINE 100 un/ml 10 ml VIAL SUBCUT ONE (19:00)
[2020-09-08] MEDS ORDERED: Dextrose 50% Syringe 50 ml 25 GM/50 ML SYRINGE IV PUSH PRN (19:30)
[2020-09-08] MEDS: ceFAZolin 1 GM ADVAN 1 GM in NS 0.9% 50 ML 50 ML IVPB SCH (20:16)
[2020-09-08] MEDS: Heparin 5000 UNITS/ML 1 mL VIAL SUBCUT SCH (20:18)
[2020-09-08] MEDS: PTO:Brimonidine/Timolol 0.2%/0.5% OPTH(NF) SOL 5 ML BOTH EYES SCH (20:20)
[2020-09-08] MEDS ORDERED: KCL 10 MEQ/50 ML IVPREMIX 10 MEQ/50 ML BAG ONE (20:42)
[2020-09-09 00:23] LABS: Urine Appearance Cloudy; Urine Bilirubin Negative (Negative); Urine Blood Negative (Negative); Urine Color Yellow; Urine Glucose Negative (Negative); Urine Ketones 1+ (Negative); Urine Nitrite Negative (Negative); Urine Protein Negative (Negative); Urine Specific Gravity 1.041 (1.002-1.030); Urine Urobilinogen Negative (Negative)
[2020-09-09] MEDS: ceFAZolin 1 GM ADVAN 1 GM in NS 0.9% 50 ML 50 ML IVPB SCH ×2 (06:01→18:07)
[2020-09-09] MEDS: Heparin 5000 UNITS/ML 1 mL VIAL SUBCUT SCH ×3 (06:03→21:25)
[2020-09-09 07:01] LABS: Hematocrit 29 % (35-47); Hemoglobin 9.4 g/dL (12.0-16.0); Mean Corpuscular HGB Conc 33 g/dL (31-36); Mean Corpuscular Hemoglobin 28 pg (27-31); Mean Corpuscular Volume 87 fL (80-97); Mean Platelet Volume 9.1 fL (7.4-10.4); Platelet Count 256 10^3/uL (150-450); Red Blood Count 3.32 10^6 /uL (3.70-4.87); Red Cell Distribution Width 17 % (10-15); White Blood Count 8.1 10^3/uL (3.5-10.8)
[2020-09-09 07:15] LABS: C Reactive Protein 166.4 mg/L (<8.01); EGFR African American 56.9 (>60); Magnesium 2.4 mg/dL (1.9-2.7); Potassium 3.9 mmol/L (3.5-5.0)
[2020-09-09] MEDS: Latanoprost 0.005% 2.5 ml BTL RIGHT EYE SCH (09:09)
[2020-09-09] MEDS: PTO:Brimonidine/Timolol 0.2%/0.5% OPTH(NF) SOL 5 ML BOTH EYES SCH ×2 (09:10→21:26)
[2020-09-09] MEDS: Insulin GLARGINE 100 un/ml 10 ml VIAL SUBCUT SCH (09:12)
[2020-09-09 11:27] LABS: Erythrocyte Sed Rate 65 mm/Hr (0-29)
[2020-09-09] MEDS: NATEGLINIDE 60 MG PO SCH ×2 (12:12→17:04)
[2020-09-09] MEDS ORDERED: Ondansetron 4 mg VIAL 2 MG/ML 2 ml VIAL IV ONE (14:51)
[2020-09-09] MEDS: hydrALAZINE 20 mg/ml 1 ML Vial IV IV SLOW PU PRN (23:45)
[2020-09-10 05:19] LABS: Hematocrit 28 % (35-47); Hemoglobin 9.2 g/dL (12.0-16.0); Mean Corpuscular HGB Conc 33 g/dL (31-36); Mean Corpuscular Hemoglobin 29 pg (27-31); Mean Corpuscular Volume 86 fL (80-97); Mean Platelet Volume 8.5 fL (7.4-10.4); Platelet Count 295 10^3/uL (150-450); Red Blood Count 3.21 10^6 /uL (3.70-4.87); Red Cell Distribution Width 17 % (10-15); White Blood Count 9.3 10^3/uL (3.5-10.8)
[2020-09-10 05:38] LABS: C Reactive Protein 114.82 mg/L (<8.01); EGFR African American 61.3 (>60); EGFR Non-African American 50.7 (>60); Magnesium 1.9 mg/dL (1.9-2.7); Phosphorus 1.8 mg/dL (2.5-5.0); Potassium 3.4 mmol/L (3.5-5.0)
[2020-09-10 05:41] LABS: ABS Eosinophils 0.2 10^3/ul (0-0.6); ABS Monocytes 1.1 10^3/ul (0-0.8); ABS Neutrophils 6.9 10^3/ul (1.5-7.7); Eosinophil % 2.1 %; Lymphocyte % 11.3 %; Nucleated Red Blood Cells % 0.1
[2020-09-10] MEDS: ceFAZolin 1 GM ADVAN 1 GM in NS 0.9% 50 ML 50 ML IVPB SCH ×2 (06:10→17:10)
[2020-09-10] MEDS: Heparin 5000 UNITS/ML 1 mL VIAL SUBCUT SCH ×2 (06:10→16:27)
[2020-09-10 07:16] LABS: Erythrocyte Sed Rate 112 mm/Hr (0-29)
[2020-09-10] MEDS: Latanoprost 0.005% 2.5 ml BTL RIGHT EYE SCH (07:47)
[2020-09-10] MEDS: PTO:Brimonidine/Timolol 0.2%/0.5% OPTH(NF) SOL 5 ML BOTH EYES SCH ×3 (07:47→21:25)
[2020-09-10] MEDS: Insulin GLARGINE 100 un/ml 10 ml VIAL SUBCUT SCH (08:46)
[2020-09-10] MEDS ORDERED: Ondansetron 4 mg VIAL 2 MG/ML 2 ml VIAL IV ONE (10:17)
[2020-09-10] MEDS ORDERED: Polyethylene Glycol 3350 17 GM PACKET PO ONE (10:26)
[2020-09-10] MEDS ORDERED: Polyethylene Glycol 3350 17 GM PACKET PO PRN (10:27)
[2020-09-10] MEDS: NATEGLINIDE 60 MG PO SCH ×2 (11:57→16:27)
[2020-09-11] MEDS: ceFAZolin 1 GM ADVAN 1 GM in NS 0.9% 50 ML 50 ML IVPB SCH ×2 (06:23→17:59)
[2020-09-11 06:43] LABS: Hematocrit 27 % (35-47); Hemoglobin 8.6 g/dL (12.0-16.0); Mean Corpuscular HGB Conc 32 g/dL (31-36); Mean Corpuscular Hemoglobin 28 pg (27-31); Mean Corpuscular Volume 87 fL (80-97); Mean Platelet Volume 8.4 fL (7.4-10.4); Platelet Count 296 10^3/uL (150-450); Red Blood Count 3.05 10^6 /uL (3.70-4.87); Red Cell Distribution Width 17 % (10-15); White Blood Count 8.7 10^3/uL (3.5-10.8)
[2020-09-11 06:55] LABS: C Reactive Protein 61.35 mg/L (<8.01); Calcium 8.2 mg/dL (8.6-10.3); EGFR African American 56.3 (>60); EGFR Non-African American 46.6 (>60); Magnesium 1.7 mg/dL (1.9-2.7); Phosphorus 1.9 mg/dL (2.5-5.0); Potassium 3.4 mmol/L (3.5-5.0)
[2020-09-11 07:50] LABS: ABS Basophils 0.1 10^3/ul (0-0.2); ABS Eosinophils 0.3 10^3/ul (0-0.6); ABS Lymphocytes 1.4 10^3/ul (1.0-4.8); Eosinophil % 3.5 %; Lymphocyte % 15.6 %; Nucleated Red Blood Cells % 0.2
[2020-09-11 07:55] LABS: Erythrocyte Sed Rate 88 mm/Hr (0-29)
[2020-09-11] MEDS: Latanoprost 0.005% 2.5 ml BTL RIGHT EYE SCH (08:12)
[2020-09-11] MEDS: PTO:Brimonidine/Timolol 0.2%/0.5% OPTH(NF) SOL 5 ML BOTH EYES SCH ×2 (08:12→21:17)
[2020-09-11] MEDS ORDERED: Potassium Chlor 20 meq TAB.ER PO ONE (08:20)
[2020-09-11] MEDS ORDERED: Magnesium Sulfate 2 gm BAG 2 GM/50 ML BAG IVPB ONE (08:30)
[2020-09-11] MEDS ORDERED: Potassium Phosphate IV 5 MMOLE in NS 0.9% 250 ml 250 ML IVPB ONE (08:30)
[2020-09-11] MEDS: Insulin GLARGINE 100 un/ml 10 ml VIAL SUBCUT SCH (09:21)
[2020-09-11] MEDS: Potassium & Sodium Phos 250 mg = 1 PACKET PO SCH ×2 (11:05→21:17)
[2020-09-11] MEDS: NATEGLINIDE 60 MG PO SCH ×2 (12:25→17:01)
[2020-09-11 14:30] LABS: Vitamin D Total 25(OH) 30.3 ng/mL (20-50)
[2020-09-11] MEDS: hydrALAZINE 20 mg/ml 1 ML Vial IV IV SLOW PU PRN (20:10)
[2020-09-11] MEDS: Enoxaparin 40 MG/0.4 ML SYR SUBCUT SCH (21:17)
[2020-09-12 05:53] LABS: Hematocrit 27 % (35-47); Hemoglobin 8.7 g/dL (12.0-16.0); Mean Corpuscular HGB Conc 32 g/dL (31-36); Mean Corpuscular Hemoglobin 28 pg (27-31); Mean Corpuscular Volume 86 fL (80-97); Mean Platelet Volume 8.6 fL (7.4-10.4); Platelet Count 324 10^3/uL (150-450); Red Blood Count 3.12 10^6 /uL (3.70-4.87); Red Cell Distribution Width 17 % (10-15); White Blood Count 10.3 10^3/uL (3.5-10.8)
[2020-09-12 06:17] LABS: ALT < 3 U/L (7-52); AST 23 U/L (13-39); Albumin/Globulin Ratio 1.2 (1-3); Alkaline Phosphatase 98 U/L (35-149); Anion Gap 8 mmol/L (2-11); Blood Urea Nitrogen 14 mg/dL (6-24); C Reactive Protein 38.85 mg/L (<8.01); CO2 Carbon Dioxide 27 mmol/L (22-32); Chloride 106 mmol/L (101-111); EGFR African American 59.4 (>60); EGFR Non-African American 49.1 (>60); Globulin 2.6 g/dL (2-4); Glucose 114 mg/dL (70-100); Potassium 3.2 mmol/L (3.5-5.0); Sodium 141 mmol/L (135-145); Total Protein 5.6 g/dL (6.4-8.9)
[2020-09-12 06:24] LABS: ABS Eosinophils 0.3 10^3/ul (0-0.6); ABS Lymphocytes 1.4 10^3/ul (1.0-4.8); ABS Monocytes 1.1 10^3/ul (0-0.8); ABS Neutrophils 7.4 10^3/ul (1.5-7.7); Eosinophil % 2.8 %; Lymphocyte % 13.7 %; Nucleated Red Blood Cells % 0.1; Polychromasia 1+
[2020-09-12 08:11] LABS: % Iron Saturation 22 % (15-55); Iron 62 ug/dL (50-212); Prealbumin 16 mg/dL (18-38); Total Iron Binding Capacity 281 mcg/dL (250-450); Transferrin 201 mg/dL (203-362); Unsaturated Iron Binding < 266 ug/dL
[2020-09-12 08:33] LABS: Ferritin 112.8 ng/mL (11-307)
[2020-09-12 08:34] LABS: Erythrocyte Sed Rate 104 mm/Hr (0-29)
[2020-09-12] MEDS ORDERED: Potassium Chlor 10 meq TAB PO ONE (09:51)
[2020-09-12] MEDS: PTO:Brimonidine/Timolol 0.2%/0.5% OPTH(NF) SOL 5 ML BOTH EYES SCH ×2 (10:28→21:45)
[2020-09-12] MEDS: Insulin GLARGINE 100 un/ml 10 ml VIAL SUBCUT SCH (10:53)
[2020-09-12] MEDS: Latanoprost 0.005% 2.5 ml BTL RIGHT EYE SCH (10:53)
[2020-09-12] MEDS: Potassium & Sodium Phos 250 mg = 1 PACKET PO SCH ×2 (10:57→21:52)
[2020-09-12] MEDS: NATEGLINIDE 60 MG PO SCH ×2 (14:41→17:53)
[2020-09-12] MEDS ORDERED: Lactated Ringers 1000 ml BAG 1,000 ML IV SCH (18:00)
[2020-09-12] MEDS: Enoxaparin 40 MG/0.4 ML SYR SUBCUT SCH (21:55)
[2020-09-13 06:19] LABS: Hematocrit 29 % (35-47); Hemoglobin 9.3 g/dL (12.0-16.0); Mean Corpuscular HGB Conc 32 g/dL (31-36); Mean Corpuscular Hemoglobin 28 pg (27-31); Mean Corpuscular Volume 87 fL (80-97); Mean Platelet Volume 8.8 fL (7.4-10.4); Platelet Count 376 10^3/uL (150-450); Red Blood Count 3.31 10^6 /uL (3.70-4.87); Red Cell Distribution Width 18 % (10-15)
[2020-09-13 06:34] LABS: C Reactive Protein 35.12 mg/L (<8.01); Calcium 8.1 mg/dL (8.6-10.3); EGFR African American 61.3 (>60); EGFR Non-African American 50.7 (>60); Potassium 3.4 mmol/L (3.5-5.0)
[2020-09-13] MEDS ORDERED: Potassium Chlor 20 meq TAB.ER PO ONE (07:45)
[2020-09-13 08:31] LABS: Magnesium 1.8 mg/dL (1.9-2.7)
[2020-09-13] MEDS: Potassium & Sodium Phos 250 mg = 1 PACKET PO SCH ×2 (09:07→21:39)
[2020-09-13] MEDS: PTO:Brimonidine/Timolol 0.2%/0.5% OPTH(NF) SOL 5 ML BOTH EYES SCH ×2 (09:11→21:39)
[2020-09-13] MEDS: Latanoprost 0.005% 2.5 ml BTL RIGHT EYE SCH (09:11)
[2020-09-13] MEDS: Insulin GLARGINE 100 un/ml 10 ml VIAL SUBCUT SCH (09:17)
[2020-09-13] MEDS: NATEGLINIDE 60 MG PO SCH ×2 (11:59→16:18)
[2020-09-13] MEDS: Lactated Ringers 1000 ml BAG 1,000 ML IV SCH (19:00)
[2020-09-13] MEDS ORDERED: Magnesium Sulfate 2 gm BAG 2 GM/50 ML BAG IVPB ONE (19:44)
[2020-09-13] MEDS: Enoxaparin 40 MG/0.4 ML SYR SUBCUT SCH (21:38)
[2020-09-14] MEDS: Lactated Ringers 1000 ml BAG 1,000 ML IV SCH (05:54)
[2020-09-14 07:00] LABS: Hematocrit 28 % (35-47); Hemoglobin 9.3 g/dL (12.0-16.0); Mean Corpuscular HGB Conc 33 g/dL (31-36); Mean Corpuscular Hemoglobin 29 pg (27-31); Mean Corpuscular Volume 87 fL (80-97); Mean Platelet Volume 8.7 fL (7.4-10.4); Platelet Count 423 10^3/uL (150-450); Red Blood Count 3.26 10^6 /uL (3.70-4.87); Red Cell Distribution Width 18 % (10-15); White Blood Count 11.8 10^3/uL (3.5-10.8)
[2020-09-14 07:07] LABS: C Reactive Protein 32.34 mg/L (<8.01); Calcium 8.5 mg/dL (8.6-10.3); EGFR African American 56.9 (>60); Magnesium 2.4 mg/dL (1.9-2.7); Phosphorus 3.5 mg/dL (2.5-5.0); Potassium 3.5 mmol/L (3.5-5.0)
[2020-09-14 07:49] LABS: ABS Basophils 0.1 10^3/ul (0-0.2); ABS Eosinophils 0.3 10^3/ul (0-0.6); ABS Lymphocytes 1.3 10^3/ul (1.0-4.8); Eosinophil % 2.6 %; Lymphocyte % 11.4 %
[2020-09-14] MEDS: Insulin GLARGINE 100 un/ml 10 ml VIAL SUBCUT SCH (08:09)
[2020-09-14] MEDS: PTO:Brimonidine/Timolol 0.2%/0.5% OPTH(NF) SOL 5 ML BOTH EYES SCH (08:09)
[2020-09-14] MEDS: Latanoprost 0.005% 2.5 ml BTL RIGHT EYE SCH (08:10)
[2020-09-14] MEDS: Potassium & Sodium Phos 250 mg = 1 PACKET PO SCH (08:12)
[2020-09-14] MEDS ORDERED: Metoclopramide LIQUID 1 mg/ml 10 ml ORAL.SOLN (10 mg) PO PRN (09:23)
[2020-09-14] MEDS: NATEGLINIDE 60 MG PO SCH (11:45)
[2020-09-14 15:05] VITALS: BP 155/61
== END 2020-09-14 16:50 | disposition home or self-care (01) | DRG 603 ==
LOC: ED 11:29 → MED 17:42
PROVIDERS: ADMIT Internal Medicine; ATTEND Pediatrics

== ENCOUNTER 2022-05-11 17:31 | Inpatient (IN) ==
[2022-05-11 18:23] LABS: ABS Basophils 0.1 10^3/ul (0-0.2); ABS Eosinophils 0.1 10^3/ul (0-0.6); ABS Lymphocytes 0.5 10^3/ul (1.0-4.8); ABS Monocytes 0.9 10^3/ul (0-0.8); Eosinophil % 0.5 %; Hematocrit 38 % (35-47); Hemoglobin 12.2 g/dL (12.0-16.0); Lymphocyte % 5.2 %; Mean Corpuscular HGB Conc 32 g/dL (31-36); Mean Corpuscular Hemoglobin 29 pg (27-31); Mean Corpuscular Volume 92 fL (80-97); Platelet Count 261 10^3/uL (150-450); Red Blood Count 4.15 10^6 /uL (3.70-4.87); Red Cell Distribution Width 17 % (10-15); White Blood Count 10.5 10^3/uL (3.5-10.8)
[2022-05-11 19:01] LABS: Urine Appearance Clear; Urine Bilirubin Negative (Negative); Urine Blood Negative (Negative); Urine Color Yellow; Urine Glucose Negative (Negative); Urine Ketones Negative (Negative); Urine Nitrite Negative (Negative); Urine Protein Negative (Negative); Urine Specific Gravity 1.024 (1.002-1.030); Urine Urobilinogen Negative (Negative)
[2022-05-11 19:26] LABS: ALT 52 U/L (7-52); AST 29 U/L (13-39); Albumin 3.6 g/dL (3.2-5.2); Albumin/Globulin Ratio 1.9 (1-3); Alkaline Phosphatase 76 U/L (35-149); Anion Gap 4 mmol/L (2-11); Blood Urea Nitrogen 27 mg/dL (6-24); CO2 Carbon Dioxide 36 mmol/L (22-32); Calcium 8.9 mg/dL (8.6-10.3); Chloride 103 mmol/L (101-111); Creatinine, Serum 1.06 mg/dL (0.51-0.95); Globulin 1.9 g/dL (2-4); Glucose 261 mg/dL (70-100); Potassium 3.1 mmol/L (3.5-5.0); Sodium 143 mmol/L (135-145); Total Protein 5.5 g/dL (6.4-8.9); eGFR CKD-EPI 53.1 (>60)
[2022-05-11 19:38] LABS: TSH Ultra Thyroid Stim Horm 0.71 mcIU/mL (0.34-5.60)
[2022-05-11 20:19] LABS: Magnesium 1.9 mg/dL (1.9-2.7)
[2022-05-11] MEDS ORDERED: Magnesium Sulfate IV 1GM/100ML 1 GM/100 ML BAG IV ONE (20:23)
[2022-05-11] MEDS ORDERED: Potassium Chlor 20 meq TAB.ER PO ONE ×2 (20:24→23:30)
[2022-05-11] MEDS ORDERED: hydrALAZINE 20 mg/ml 1 ML Vial IV IV SLOW PU ONE (20:43)
[2022-05-11 21:09] LABS: Vitamin B12 > 1450 pg/mL (180-914)
[2022-05-11] MEDS: KCL 10 MEQ/50 ML IVPREMIX 10 MEQ/50 ML BAG IV SCH ×2 (21:15→23:52)
[2022-05-11] MEDS ORDERED: Potassium Chloride LIQUID 20 MEQ/15 ML LIQUID PO ONE (23:26)
[2022-05-11] MEDS ORDERED: Dextrose 50% Syringe 50 ml 25 GM/50 ML SYRINGE IV PUSH PRN (23:26)
[2022-05-11] MEDS ORDERED: Nitrofurantoin (macrocrystals) 50 mg CAP PO SCH (23:45)
[2022-05-12 00:12] LABS: Vitamin D Total 25(OH) 37.6 ng/mL (20-50)
[2022-05-12] MEDS: Enoxaparin 40 MG/0.4 ML SYR SUBCUT SCH ×2 (00:17→22:53)
[2022-05-12] MEDS: Sulfamethox/Trimethoprim SS TAB 400/80 mg PO SCH (01:40)
[2022-05-12 06:14] LABS: Calcium 8.9 mg/dL (8.6-10.3); Creatinine, Serum 0.97 mg/dL (0.51-0.95); Potassium 3.8 mmol/L (3.5-5.0); eGFR CKD-EPI 59.1 (>60)
[2022-05-12] MEDS ORDERED: Zoledronic/Mannitol 5 MG/100ML 5 MG/100 ML BTL IVPB ONE (09:00)
[2022-05-12] MEDS ORDERED: NS 0.9% w/ 20 Meq KCL 1000 ml 1,000 ML IV SCH (09:00)
[2022-05-12] MEDS ORDERED: NATEGLINIDE 60 MG PO SCH (09:00)
[2022-05-12] MEDS ORDERED: Zoledronic Acid 4 MG in NS 0.9% 100 ml BAG 100 ML IVPB ONE (09:00)
[2022-05-12] MEDS: Calcium Citrate 200 mg TAB PO SCH (10:54)
[2022-05-12] MEDS: Cholecalciferol (VIT D3) 1,000 unit TAB PO SCH (10:54)
[2022-05-12] MEDS: TRAVOPROST Z 0.004% RIGHT EYE SCH (10:59)
[2022-05-12] MEDS: CMCS: Dorzolamide 2% OPTH (NF) 10 ML BTL BOTH EYES SCH ×2 (10:59→20:57)
[2022-05-12] MEDS: CMCS: Brimonidine/Timolol 0.2%/0.5% OPTH(NF) SOL 5 ML BOTH EYES SCH ×2 (11:00→20:54)
[2022-05-13 07:19] LABS: ABS Basophils 0.1 10^3/ul (0-0.2); ABS Eosinophils 0.2 10^3/ul (0-0.6); ABS Lymphocytes 0.9 10^3/ul (1.0-4.8); ABS Monocytes 0.9 10^3/ul (0-0.8); ABS Neutrophils 6.7 10^3/ul (1.5-7.7); Eosinophil % 1.8 %; Hematocrit 39 % (35-47); Hemoglobin 12.4 g/dL (12.0-16.0); Lymphocyte % 10.2 %; Mean Corpuscular HGB Conc 32 g/dL (31-36); Mean Corpuscular Hemoglobin 30 pg (27-31); Mean Corpuscular Volume 92 fL (80-97); Platelet Count 268 10^3/uL (150-450); Red Cell Distribution Width 16 % (10-15); White Blood Count 8.6 10^3/uL (3.5-10.8)
[2022-05-13 07:36] LABS: Albumin 3.6 g/dL (3.2-5.2); Albumin/Globulin Ratio 1.9 (1-3); Calcium 9.1 mg/dL (8.6-10.3); Creatinine, Serum 0.98 mg/dL (0.51-0.95); Globulin 1.9 g/dL (2-4); Potassium 3.4 mmol/L (3.5-5.0); Total Bilirubin 0.9 mg/dL (0.2-1.0); Total Protein 5.5 g/dL (6.4-8.9); eGFR CKD-EPI 58.3 (>60)
[2022-05-13] MEDS: Cholecalciferol (VIT D3) 1,000 unit TAB PO SCH (10:32)
[2022-05-13] MEDS: CMCS: Brimonidine/Timolol 0.2%/0.5% OPTH(NF) SOL 5 ML BOTH EYES SCH ×2 (10:32→21:47)
[2022-05-13] MEDS: Calcium Citrate 200 mg TAB PO SCH (10:32)
[2022-05-13] MEDS: TRAVOPROST Z 0.004% RIGHT EYE SCH (10:33)
[2022-05-13] MEDS: CMCS: Dorzolamide 2% OPTH (NF) 10 ML BTL BOTH EYES SCH ×2 (10:33→21:46)
[2022-05-13] MEDS ORDERED: Potassium Chlor 20 meq TAB.ER PO ONE (10:48)
[2022-05-13] MEDS: Enoxaparin 40 MG/0.4 ML SYR SUBCUT SCH (23:23)
[2022-05-14] MEDS: Sulfamethox/Trimethoprim SS TAB 400/80 mg PO SCH (01:27)
[2022-05-14 06:06] LABS: ABS Eosinophils 0.1 10^3/ul (0-0.6); ABS Lymphocytes 0.7 10^3/ul (1.0-4.8); ABS Neutrophils 11.3 10^3/ul (1.5-7.7); Eosinophil % 0.8 %; Hematocrit 40 % (35-47); Lymphocyte % 5.1 %; Mean Corpuscular HGB Conc 33 g/dL (31-36); Mean Corpuscular Hemoglobin 30 pg (27-31); Mean Corpuscular Volume 92 fL (80-97); Mean Platelet Volume 9.5 fL (7.4-10.4); Platelet Count 272 10^3/uL (150-450); Red Blood Count 4.31 10^6 /uL (3.70-4.87); Red Cell Distribution Width 17 % (10-15); White Blood Count 13.1 10^3/uL (3.5-10.8)
[2022-05-14 06:25] LABS: Albumin 3.6 g/dL (3.2-5.2); Albumin/Globulin Ratio 1.7 (1-3); Calcium 8.6 mg/dL (8.6-10.3); Creatinine, Serum 1.04 mg/dL (0.51-0.95); Globulin 2.1 g/dL (2-4); Total Bilirubin 0.9 mg/dL (0.2-1.0); Total Protein 5.7 g/dL (6.4-8.9); eGFR CKD-EPI 54.3 (>60)
[2022-05-14] MEDS: TRAVOPROST Z 0.004% RIGHT EYE SCH (09:16)
[2022-05-14] MEDS: CMCS: Brimonidine/Timolol 0.2%/0.5% OPTH(NF) SOL 5 ML BOTH EYES SCH ×2 (09:17→23:45)
[2022-05-14] MEDS: Cholecalciferol (VIT D3) 1,000 unit TAB PO SCH (09:22)
[2022-05-14] MEDS: Calcium Citrate 200 mg TAB PO SCH (09:25)
[2022-05-14] MEDS: CMCS: Dorzolamide 2% OPTH (NF) 10 ML BTL BOTH EYES SCH ×2 (09:26→23:45)
[2022-05-14] MEDS: Enoxaparin 40 MG/0.4 ML SYR SUBCUT SCH (23:46)
[2022-05-15 07:09] LABS: Hematocrit 39 % (35-47); Hemoglobin 12.7 g/dL (12.0-16.0); Mean Corpuscular HGB Conc 33 g/dL (31-36); Mean Corpuscular Hemoglobin 30 pg (27-31); Mean Corpuscular Volume 92 fL (80-97); Mean Platelet Volume 9.1 fL (7.4-10.4); Platelet Count 279 10^3/uL (150-450); Red Blood Count 4.24 10^6 /uL (3.70-4.87); Red Cell Distribution Width 16 % (10-15); White Blood Count 11.3 10^3/uL (3.5-10.8)
[2022-05-15 07:25] LABS: Albumin 3.9 g/dL (3.2-5.2); Albumin/Globulin Ratio 1.6 (1-3); Calcium 8.8 mg/dL (8.6-10.3); Creatinine, Serum 1.16 mg/dL (0.51-0.95); Globulin 2.4 g/dL (2-4); Potassium 3.6 mmol/L (3.5-5.0); Total Protein 6.3 g/dL (6.4-8.9); eGFR CKD-EPI 47.7 (>60)
[2022-05-15 08:31] LABS: ABS Eosinophils 0.1 10^3/ul (0-0.6); ABS Lymphocytes 0.6 10^3/ul (1.0-4.8); ABS Monocytes 0.8 10^3/ul (0-0.8); ABS Neutrophils 9.8 10^3/ul (1.5-7.7); Eosinophil % 1.1 %; Lymphocyte % 4.9 %
[2022-05-15] MEDS: Cholecalciferol (VIT D3) 1,000 unit TAB PO SCH (08:55)
[2022-05-15] MEDS: Calcium Citrate 200 mg TAB PO SCH (08:56)
[2022-05-15] MEDS: TRAVOPROST Z 0.004% RIGHT EYE SCH (09:42)
[2022-05-15] MEDS: CMCS: Brimonidine/Timolol 0.2%/0.5% OPTH(NF) SOL 5 ML BOTH EYES SCH ×2 (11:27→21:13)
[2022-05-15] MEDS: CMCS: Dorzolamide 2% OPTH (NF) 10 ML BTL BOTH EYES SCH ×2 (11:28→21:13)
[2022-05-15] MEDS ORDERED: Potassium Chlor 20 meq TAB.ER PO ONE (15:26)
[2022-05-15] MEDS: Enoxaparin 40 MG/0.4 ML SYR SUBCUT SCH (21:14)
[2022-05-16] MEDS: Sulfamethox/Trimethoprim SS TAB 400/80 mg PO SCH (01:33)
[2022-05-16 05:53] LABS: Hematocrit 40 % (35-47); Hemoglobin 12.4 g/dL (12.0-16.0); Mean Corpuscular HGB Conc 31 g/dL (31-36); Mean Corpuscular Hemoglobin 30 pg (27-31); Mean Corpuscular Volume 96 fL (80-97); Mean Platelet Volume 9.1 fL (7.4-10.4); Platelet Count 256 10^3/uL (150-450); Red Cell Distribution Width 17 % (10-15); White Blood Count 8.5 10^3/uL (3.5-10.8)
[2022-05-16 06:06] LABS: Albumin 3.7 g/dL (3.2-5.2); CO2 Carbon Dioxide 23 mmol/L (22-32); Calcium 8.5 mg/dL (8.6-10.3); Chloride 105 mmol/L (101-111); Sodium 139 mmol/L (135-145)
[2022-05-16 06:12] LABS: ALT 26 U/L (7-52); Albumin/Globulin Ratio 1.7 (1-3); Alkaline Phosphatase 82 U/L (35-149); Blood Urea Nitrogen 23 mg/dL (6-24); Creatinine, Serum 1.35 mg/dL (0.51-0.95); Globulin 2.2 g/dL (2-4); Glucose 86 mg/dL (70-100); Total Protein 5.9 g/dL (6.4-8.9); eGFR CKD-EPI 39.7 (>60)
[2022-05-16 06:17] LABS: Anion Gap 11 mmol/L (2-11)
[2022-05-16] MEDS ORDERED: NS 0.9% 1000 ml BAG 1,000 ML IV SCH (07:15)
[2022-05-16 07:17] LABS: Potassium Redraw 4.3 mmol/L (3.5-5.0)
[2022-05-16 08:38] LABS: ABS Eosinophils 0.2 10^3/ul (0-0.6); ABS Lymphocytes 0.7 10^3/ul (1.0-4.8); ABS Monocytes 0.7 10^3/ul (0-0.8); ABS Neutrophils 6.9 10^3/ul (1.5-7.7); Eosinophil % 1.9 %; Lymphocyte % 8.2 %
[2022-05-16] MEDS: TRAVOPROST Z 0.004% RIGHT EYE SCH (09:04)
[2022-05-16] MEDS: CMCS: Dorzolamide 2% OPTH (NF) 10 ML BTL BOTH EYES SCH ×2 (09:07→20:05)
[2022-05-16] MEDS: CMCS: Brimonidine/Timolol 0.2%/0.5% OPTH(NF) SOL 5 ML BOTH EYES SCH ×2 (09:09→20:00)
[2022-05-16] MEDS: Calcium Citrate 200 mg TAB PO SCH (09:11)
[2022-05-16] MEDS: Cholecalciferol (VIT D3) 1,000 unit TAB PO SCH (09:11)
[2022-05-16] MEDS: Enoxaparin 40 MG/0.4 ML SYR SUBCUT SCH (21:04)
[2022-05-17] MEDS: Calcium Citrate 200 mg TAB PO SCH (08:24)
[2022-05-17] MEDS: Cholecalciferol (VIT D3) 1,000 unit TAB PO SCH (08:25)
[2022-05-17] MEDS: CMCS: Dorzolamide 2% OPTH (NF) 10 ML BTL BOTH EYES SCH ×2 (08:26→22:29)
[2022-05-17] MEDS: CMCS: Brimonidine/Timolol 0.2%/0.5% OPTH(NF) SOL 5 ML BOTH EYES SCH ×2 (08:29→22:29)
[2022-05-17] MEDS: TRAVOPROST Z 0.004% RIGHT EYE SCH (09:31)
[2022-05-17] MEDS ORDERED: PPD test dose 5 TU/0.1 ML TEST (*USE PPD ORDER SET*) INTRADERM ONE (13:00)
[2022-05-17] MEDS: Enoxaparin 40 MG/0.4 ML SYR SUBCUT SCH (22:28)
[2022-05-18] MEDS ORDERED: Magnesium Hydroxide LIQ 30 ML UDC PO PRN (03:45)
[2022-05-18 06:04] LABS: ABS Eosinophils 0.1 10^3/ul (0-0.6); ABS Lymphocytes 0.5 10^3/ul (1.0-4.8); ABS Monocytes 0.8 10^3/ul (0-0.8); ABS Neutrophils 11.2 10^3/ul (1.5-7.7); Eosinophil % 0.7 %; Hematocrit 37 % (35-47); Hemoglobin 11.6 g/dL (12.0-16.0); Lymphocyte % 3.6 %; Mean Corpuscular HGB Conc 32 g/dL (31-36); Mean Corpuscular Hemoglobin 29 pg (27-31); Mean Corpuscular Volume 93 fL (80-97); Mean Platelet Volume 9.5 fL (7.4-10.4); Nucleated Red Blood Cells % 0.1; Platelet Count 279 10^3/uL (150-450); Red Blood Count 3.97 10^6 /uL (3.70-4.87); Red Cell Distribution Width 17 % (10-15); White Blood Count 12.6 10^3/uL (3.5-10.8)
[2022-05-18 06:27] LABS: Calcium 8.5 mg/dL (8.6-10.3); Creatinine, Serum 1.24 mg/dL (0.51-0.95); Magnesium 1.9 mg/dL (1.9-2.7); Potassium 3.8 mmol/L (3.5-5.0)
[2022-05-18] MEDS: Sulfamethox/Trimethoprim SS TAB 400/80 mg PO SCH (10:09)
[2022-05-18] MEDS: Cholecalciferol (VIT D3) 1,000 unit TAB PO SCH (10:13)
[2022-05-18] MEDS: Calcium Citrate 200 mg TAB PO SCH (10:13)
[2022-05-18] MEDS: CMCS: Brimonidine/Timolol 0.2%/0.5% OPTH(NF) SOL 5 ML BOTH EYES SCH ×2 (10:17→22:15)
[2022-05-18] MEDS: CMCS: Dorzolamide 2% OPTH (NF) 10 ML BTL BOTH EYES SCH ×2 (10:17→22:05)
[2022-05-18] MEDS: TRAVOPROST Z 0.004% RIGHT EYE SCH (12:01)
[2022-05-18] MEDS ORDERED: hydrALAZINE 20 mg/ml 1 ML Vial IV IV SLOW PU PRN (16:38)
[2022-05-18] MEDS: Enoxaparin 40 MG/0.4 ML SYR SUBCUT SCH (22:08)
[2022-05-18] MEDS: Latanoprost 0.005% 2.5 ml BTL RIGHT EYE SCH (22:27)
[2022-05-19 05:54] LABS: Hematocrit 37 % (35-47); Hemoglobin 12.1 g/dL (12.0-16.0); Mean Corpuscular HGB Conc 33 g/dL (31-36); Mean Corpuscular Hemoglobin 30 pg (27-31); Mean Corpuscular Volume 92 fL (80-97); Mean Platelet Volume 9.2 fL (7.4-10.4); Platelet Count 286 10^3/uL (150-450); Red Blood Count 4.03 10^6 /uL (3.70-4.87); Red Cell Distribution Width 17 % (10-15); White Blood Count 8.9 10^3/uL (3.5-10.8)
[2022-05-19 06:15] LABS: Calcium 8.9 mg/dL (8.6-10.3); Magnesium 2.4 mg/dL (1.9-2.7); Potassium 3.8 mmol/L (3.5-5.0)
[2022-05-19 06:21] LABS: Creatinine, Serum 1.64 mg/dL (0.51-0.95); eGFR CKD-EPI 31.5 (>60)
[2022-05-19 07:16] LABS: ABS Eosinophils 0.1 10^3/ul (0-0.6); ABS Lymphocytes 0.8 10^3/ul (1.0-4.8); ABS Monocytes 0.7 10^3/ul (0-0.8); ABS Neutrophils 7.4 10^3/ul (1.5-7.7); Acanthocytes 1+; Anisocytosis 1+; Eosinophil % 0.8 %; Lymphocyte % 8.8 %
[2022-05-19] MEDS: Cholecalciferol (VIT D3) 1,000 unit TAB PO SCH (08:35)
[2022-05-19] MEDS: Calcium Citrate 200 mg TAB PO SCH (08:36)
[2022-05-19] MEDS: CMCS: Dorzolamide 2% OPTH (NF) 10 ML BTL BOTH EYES SCH ×2 (08:37→22:29)
[2022-05-19] MEDS: CMCS: Brimonidine/Timolol 0.2%/0.5% OPTH(NF) SOL 5 ML BOTH EYES SCH ×2 (10:30→22:18)
[2022-05-19] MEDS ORDERED: PPD Reading NOTE 1 EA MISC ONE (13:00)
[2022-05-19 16:20] LABS: Rapid COVID-19 Molecular Undetected (Undetected)
[2022-05-19] MEDS: NATEGLINIDE 60 MG PO SCH (17:41)
[2022-05-19] MEDS: Enoxaparin 30 MG/0.3 ML SYR SUBCUT SCH (22:19)
[2022-05-19] MEDS: Latanoprost 0.005% 2.5 ml BTL RIGHT EYE SCH (22:42)
[2022-05-20 06:18] LABS: Calcium 9.2 mg/dL (8.6-10.3); Creatinine, Serum 1.9 mg/dL (0.51-0.95); Potassium 3.3 mmol/L (3.5-5.0); eGFR CKD-EPI 26.4 (>60)
[2022-05-20] MEDS: NATEGLINIDE 60 MG PO SCH ×2 (08:25→16:50)
[2022-05-20] MEDS: Cholecalciferol (VIT D3) 1,000 unit TAB PO SCH (08:26)
[2022-05-20] MEDS: Calcium Citrate 200 mg TAB PO SCH (08:27)
[2022-05-20] MEDS: CMCS: Brimonidine/Timolol 0.2%/0.5% OPTH(NF) SOL 5 ML BOTH EYES SCH ×2 (08:29→20:51)
[2022-05-20] MEDS: CMCS: Dorzolamide 2% OPTH (NF) 10 ML BTL BOTH EYES SCH ×2 (08:30→20:29)
[2022-05-20] MEDS: Insulin GLARGINE 100 un/ml 10 ml VIAL SUBCUT SCH (08:31)
[2022-05-20] MEDS ORDERED: Lactated Ringers 1000 ml BAG 1,000 ML IV SCH (16:00)
[2022-05-20] MEDS: KCL 20 MEQ/100 ML IVPREMIX 20 MEQ/100 ML BAG IV SCH ×2 (16:50→18:58)
[2022-05-20] MEDS: Enoxaparin 30 MG/0.3 ML SYR SUBCUT SCH (20:32)
[2022-05-20] MEDS: Latanoprost 0.005% 2.5 ml BTL RIGHT EYE SCH (21:20)
[2022-05-21] MEDS ORDERED: Lidocaine 4% GEL 10 GM TUBE TOPICAL ONE (04:34)
[2022-05-21 07:52] VITALS: BP 180/80
[2022-05-21] MEDS: Cholecalciferol (VIT D3) 1,000 unit TAB PO SCH (08:31)
[2022-05-21] MEDS: Insulin GLARGINE 100 un/ml 10 ml VIAL SUBCUT SCH (08:31)
[2022-05-21] MEDS: NATEGLINIDE 60 MG PO SCH (08:32)
[2022-05-21] MEDS: Calcium Citrate 200 mg TAB PO SCH (08:33)
[2022-05-21] MEDS: CMCS: Brimonidine/Timolol 0.2%/0.5% OPTH(NF) SOL 5 ML BOTH EYES SCH (08:34)
[2022-05-21] MEDS: CMCS: Dorzolamide 2% OPTH (NF) 10 ML BTL BOTH EYES SCH (08:35)
[2022-05-21] MEDS: Sulfamethox/Trimethoprim SS TAB 400/80 mg PO SCH (08:43)
[2022-05-21] MEDS ORDERED: Potassium Chlor 20 meq TAB.ER PO SCH (09:00)
== END 2022-05-21 11:45 | DRG 470 ==
LOC: EDHOLD 17:31 → ED 17:31 → SUATTDRO 22:04 → SSU 05-12 01:03 → SUATTDRO 05-13 11:31
PROVIDERS: ADMIT Hospitalist; ATTEND Internal Medicine

== ENCOUNTER 2022-12-05 12:19 | Observation (INO) ==
[2022-12-05] MEDS ORDERED: Potassium Chlor 20 meq TAB.ER PO ONE (13:13)
[2022-12-05 13:42] LABS: ABS Basophils 0.1 10^3/uL (0.0-0.1); ABS Eosinophils 0.2 10^3/uL (0.0-0.5); ABS Lymphocytes 0.5 10^3/uL (1.0-4.8); Eosinophil % 2.1 %; Hematocrit 35.7 % (35-45); Hemoglobin 11.6 g/dL (11.5-14.3); Lymphocyte % 4.3 %; Mean Corpuscular Hgb Conc 32.4 g/dL (31-36); Mean Corpuscular Volume 83.1 fL (80-97); Mean Platelet Volume 9.8 fL (7.5-11.2); Platelet Count 226 10^3/uL (150-450); Red Cell Distribution Width 18.8 % (12-17); White Blood Count 11.8 10^3/uL (3.8-11.8)
[2022-12-05 14:01] LABS: High Sensitivity Troponin 1 Hr 35 pg/mL (<15)
[2022-12-05 14:03] LABS: Albumin 3.8 g/dL (3.2-5.2); Albumin/Globulin Ratio 1.4 (1-3); C Reactive Protein 106.86 mg/L (<8.01); Calcium 8.4 mg/dL (8.6-10.3); Creatinine, Serum 1.18 mg/dL (0.51-0.95); Globulin 2.7 g/dL (2-4); Total Bilirubin 0.5 mg/dL (0.2-1.0); Total Protein 6.5 g/dL (6.4-8.9); eGFR CKD-EPI 46.7 (>60)
[2022-12-05] MEDS ORDERED: cefTRIAXone 1 gm/50 mL D5W 1 GM/50 ML BAG IV ONE (14:26)
[2022-12-05] MEDS: Enoxaparin 40 MG/0.4 ML SYR SUBCUT SCH (16:35)
[2022-12-05 17:03] LABS: Activated Partial Thrombo Time 34.4 seconds (26.0-38.0); INR 1.05 (0.83-1.13)
[2022-12-05 17:37] LABS: TSH Ultra Thyroid Stim Horm 2.4 mcIU/mL (0.34-5.60)
[2022-12-05 17:50] LABS: Free T4 1.65 ng/dL (0.61-1.12)
[2022-12-05] MEDS ORDERED: Magnesium Sulfate 2 gm BAG 2 GM/50 ML BAG IVPB ONE (20:19)
[2022-12-06 06:33] LABS: ABS Basophils 0.1 10^3/uL (0.0-0.1); ABS Eosinophils 0.3 10^3/uL (0.0-0.5); ABS Lymphocytes 0.8 10^3/uL (1.0-4.8); ABS Monocytes 0.8 10^3/uL (0.0-0.9); ABS Neutrophils 6.1 10^3/uL (1.5-7.6); ABS Nucleated RBC 0.01 10^3/ul; Eosinophil % 3.8 %; Hematocrit 35.5 % (35-45); Hemoglobin 11.4 g/dL (11.5-14.3); Lymphocyte % 10.2 %; Mean Corpuscular Hemoglobin 27.6 pg (27-33); Mean Corpuscular Hgb Conc 32.1 g/dL (31-36); Mean Corpuscular Volume 85.9 fL (80-97); Mean Platelet Volume 9.1 fL (7.5-11.2); Nucleated Red Blood Cells % 0.1 /100 WBC (0.0-0.4); Platelet Count 191 10^3/uL (150-450); Red Blood Count 4.13 10^6/uL (3.63-4.92); White Blood Count 8.2 10^3/uL (3.8-11.8)
[2022-12-06 06:58] LABS: Calcium 8.2 mg/dL (8.6-10.3); Creatinine, Serum 1.03 mg/dL (0.51-0.95); HDL Cholesterol 41.5 mg/dL; Magnesium 2.1 mg/dL (1.9-2.7); Potassium 3.8 mmol/L (3.5-5.0)
[2022-12-06] MEDS ORDERED: Sulfur Hexaflouride MICROSPHR 25 MG VIAL ONE (09:22)
[2022-12-06] MEDS ORDERED: Regadenoson 0.4 MG/5 ML SYRINGE ONE (11:19)
[2022-12-06] MEDS ORDERED: Aminophylline 25 MG/ML VIAL ONE (11:19)
[2022-12-06] MEDS ORDERED: cefTRIAXone 1 gm/50 mL D5W 1 GM/50 ML BAG IV SCH (14:30)
[2022-12-06] MEDS: Cholecalciferol (VIT D3) 1,000 unit TAB PO SCH (15:44)
[2022-12-06] MEDS: Enoxaparin 40 MG/0.4 ML SYR SUBCUT SCH (16:40)
[2022-12-07 07:00] LABS: Hematocrit 33.2 % (35-45); Hemoglobin 11.1 g/dL (11.5-14.3); Mean Corpuscular Hemoglobin 27.9 pg (27-33); Mean Corpuscular Hgb Conc 33.6 g/dL (31-36); Mean Corpuscular Volume 83.2 fL (80-97); Mean Platelet Volume 9.8 fL (7.5-11.2); Platelet Count 206 10^3/uL (150-450); Red Blood Count 3.98 10^6/uL (3.63-4.92); Red Cell Distribution Width 19.1 % (12-17); White Blood Count 7.2 10^3/uL (3.8-11.8)
[2022-12-07 07:41] LABS: Calcium 8.2 mg/dL (8.6-10.3); Creatinine, Serum 1.04 mg/dL (0.51-0.95); Magnesium 1.8 mg/dL (1.9-2.7); Potassium 3.7 mmol/L (3.5-5.0); eGFR CKD-EPI 54.3 (>60)
[2022-12-07] MEDS ORDERED: Magnesium Sulfate 2 gm BAG 2 GM/50 ML BAG IVPB ONE (07:55)
[2022-12-07] MEDS: Cholecalciferol (VIT D3) 1,000 unit TAB PO SCH (08:39)
[2022-12-07 08:54] LABS: Albumin 3.4 g/dL (3.2-5.2)
[2022-12-07 14:40] VITALS: BP 148/52
== END 2022-12-07 17:00 ==
LOC: ED 12:19 → EDHOLD 12:19 → SUATTDRO 15:46 → MEDTELE 15:46
PROVIDERS: ADMIT Hospitalist; ATTEND Hospitalist